=== PATIENT | female | born 1950 | race African-American/Black ===

== ENCOUNTER 2019-04-27 13:14 | Inpatient (IN) | payer OTHER ==
--- OUTSIDE RECORDS SUMMARY | 2019-04-27 13:17 | XMS REPORT ---
:1950 [facility] [address] [place] [address] Care Team Providers Name Role Phone Unavailable Unavailable Unavailable Problems This patient has no known problems. Allergies, Adverse Reactions, Alerts This patient has no known allergies or adverse reactions. Medications This patient has no known medications.
[2019-04-27 14:33] LABS: Absolute Lymphocytes (CBC) 0.4 K/uL (0.7-4.9); Basophils % 0.2 % (0-1.3); Hematocrit 34.5 % (36.0-45.0); Lymphocytes % 2.8 % (15.3-44.8); MPV 9.4 fL (7.6-11.3); RBC Red Blood Cell Count 3.69 M/uL (3.86-4.86)
[2019-04-27] MEDS ORDERED: NA CHLORIDE 0.9% 500 ML ONE (14:38)
--- NOTE | 2019-04-27 14:39 | RAD REPORT ---
EXAM DESCRIPTION: CT - Head Brain Wo Cont - 04/27/2019 2:22 pm CLINICAL HISTORY: Unresponsive COMPARISON: None TECHNIQUE: Computed axial tomography of the head was obtained. IV contrast was not requested. All CT scans are performed using dose optimization technique as appropriate and may include automated exposure control or mA/KV adjustment according to patient size. FINDINGS: Marked scalp swelling is present. The calvarium is thickened. This does limit evaluation o f the intracranial structures somewhat. A gross intracranial bleed is not seen. Low-density areas measuring a couple centimeters are present within the right frontal lobe and right occipital lobe. Additional small low-density areas within the periventricular and deep white matter appear chronic The ventricles are normal caliber Partial opacification right mastoids. Right middle ear is opacified. This may indicate inflammation s hould be correlated clinically IMPRESSION: Low density areas within the right frontal and right occipital lobes having the appearan ce of infarctions. Age is indeterminate. MRI is recommended for further evaluation
[2019-04-27 14:46] LABS: Urine Bacteria 20-50 /HPF (<20); Urine RBC <5 /HPF (NONE SEEN)
[2019-04-27 14:47] LABS: Urine Amorphous Sediment 3+ /HPF (NONE SEEN); Urine Coarse Granular Casts 0-5 /LPF (NONE SEEN); Urine Mucus 1+ /HPF (NONE SEEN)
[2019-04-27 15:04] LABS: Urine Blood 1+ (NEG); Urine Glucose NEGATIVE (NEG); Urine Protein 3+ (NEG); Urine Specific Gravity >1.030 (1.005-1.030)
[2019-04-27 15:05] LABS: Albumin 3.1 g/dL (3.4-5.0); Bilirubin Direct 0.2 mg/dL (0-0.2); Bilirubin Total 0.5 mg/dL (0.2-1.0); Potassium 4.4 mmol/L (3.5-5.1); Protein, Total 6.9 g/dL (6.4-8.2); Troponin (Emerg Dept Use Only) 0.06 ng/mL (0.0-0.045)
--- NOTE | 2019-04-27 15:13 | RAD REPORT ---
EXAM DESCRIPTION: RAD - Chest Single View - 04/27/2019 2:31 pm CLINICAL HISTORY: DYSPNEA, altered mental status COMPARISON: Chest Pa And Lat (2 Views) dated 05/31/2017None. TECHNIQUE: AP portable chest image was obtained 04/27/2019 2:31 pm . FINDINGS: Lungs are clear. Heart and vasculature are normal. No measurable pleural effusion and no p neumothorax. No acute bony abnormality seen. No acute aortic findings suspected. IMPRESSION: No acute cardiopulmonary process. No suspicious change from comparison.
[2019-04-27 15:24] LABS: White Blood Cell Scan OK
[2019-04-27 15:25] LABS: Blood Morphology Comment NOT SEEN (NOT SEEN); Platelet Estimate ADEQ
--- NOTE | 2019-04-27 16:06 | ER ---
Nurse's Notes [facility] Name: Yaa Deleon Age: 69 yrs Sex: Female : 1950 Arrival Date: 04/27/2019 Time: 13:21 Bed 18 Private MD: Diagnosis: Cerebral infarction;Acute kidney failure;Rhabdomyolysis;Altered mental status, unspecified Presentation: 04/27 13:22 Presenting complaint: EMS states: FOUND DOWN BY PD ON WELFARE CHECK, LAST SEEN BY bp FAMILY 3 DAYS AGO. Transition of care: patient was not received from another setting of care. Onset of symptoms is unknown. Risk Assessment: Do you want to hurt yourself or someone else? Patient reports no desire to harm self or others. Initial Sepsis Screen: Does the patient meet any 2 criteria? Altered Mental Status. HR > 90 bpm. Does the patient have a suspected source of infection? No. Patient's initial sepsis screen is negative. Care prior to arrival: Glucose check: 89. 13:22 Method Of Arrival: EMS: [facility] bp 13:22 Acuity: LISA 2 bp Triage Assessment: 13:26 General: Appears distressed, uncomfortable, obese, unkempt, Behavior is cooperative, bp appropriate for age, anxious. Pain: Denies pain. EENT: No deficits noted. Neuro: Level of Consciousness is obeys commands, confused, lethargic, Oriented to person, place, time, situation. Cardiovascular: Rhythm is sinus tachycardia. Respiratory: No deficits noted. GI: Abdomen is obese, Reports vomiting. : No signs and/or symptoms were reported regarding the genitourinary system. Derm: No deficits noted. Musculoskeletal: No deficits noted. Historical: - Allergies: 13:25 No Known Allergies; bp - Home Meds: 13:25 Eliquis oral oral [Active]; metoprolol tartrate 50 mg Oral tab 1 tab once daily bp [Active]; atorvastatin 20 mg Oral tab 1 tab once daily [Active]; 19:48 Omeprazole Oral [Active]; wh - PMHx: 13:25 Myocardial infarction; Cancer; DVT; Hypertension; bp - Immunization history:: Adult Immunizations unknown. - Social history:: Smoking status: Patient denies any tobacco usage or history of. - Ebola Screening: : No symptoms or risks identified at this time. - History obtained from: EMS. Screenin:27 Abuse screen: Denies threats or abuse. Denies injuries from another. Nutritional bp screening: No deficits noted. Tuberculosis screening: No symptoms or risk factors identified. Fall Risk None identified. Assessment: 13:27 General: SEE TRIAGE NOTE. bp 14:23 Reassessment: PT REQUIRING EXTENSIVE CLEANING BY STAFF. FECES DRIED TO POSTERIOR bp SURFACES WELL EXTENSIVELY PRESENT ON EXTERNAL AND INTERNAL PERINEAL SURFACES AND OBSCURING THE URETHRAL MEATUS. NO OBVIOUS DECUBITUS NOTED. 15:41 Reassessment: PT RESTING QUIETLY. FAMILY AT B/S AND CONFIRM EMS REPORT OF PT DOWN ON bp GROUND AT HOME. PT REMAINS AOx2, FURTHER RESULTS PENDING. 17:00 Reassessment: ADMIT IN PROCESS. PER RADIOLOGY, CT HIGHLY SUSPICIOUS FOR CEREBRAL bp INFARCT. NO CHANGE IN PT NEURO STATUS AT THIS TIME. 18:00 Reassessment: ADMIT IN PROCESS, FAMILY AT B/S. PT SEEN BY DR HUNTER. VS STABLE ON bp MONITOR. 19:04 Reassessment: Patient appears in no apparent distress at this time. Patient and/or wh family updated on plan of care and expected duration. Pain level reassessed. 20:00 Reassessment: Patient appears in no apparent distress at this time. Patient and/or wh family updated on plan of care and expected duration. Pain level reassessed. PT was brought to MRI for Imaging. 21:30 Reassessment: Patient appears in no apparent distress at this time. Patient and/or wh family updated on plan of care and expected duration. Pain level reassessed. Pt brought back from MRI imaging. Vital Signs: 13:25 BP 164 / 67; Pulse 115; Resp 14; Temp 97.4; Pulse Ox 99% ; Weight 136.08 kg; bp 14:24 BP 172 / 75; Pulse 121; Resp 19; Pulse Ox 99% ; bp 15:40 BP 164 / 67; Pulse 93; Resp 14; Pulse Ox 97% ; bp 17:00 BP 158 / 63; Pulse 111; Resp 15; Pulse Ox 98% ; bp 18:00 BP 113 / 61; Pulse 130; Resp 18; Pulse Ox 100% ; bp 19:05 BP 154 / 64; Pulse 117; Resp 18; Pulse Ox 98% ; wh 20:00 BP 144 / 70; Pulse 120; Resp 18; Pulse Ox 98% on R/A; wh 21:45 BP 146 / 64; Pulse 121; Resp 18; Pulse Ox 100% ; ED Course: 13:21 Patient arrived in ED. rn 13:21 Bogdan Candelaria MD is Attending Physician. rn 13:22 Al Rico, CEM is Primary Nurse. bp 13:23 Triage completed. bp 13:25 Arm band placed on left wrist. bp 13:27 Patient has correct armband on for positive identification. Bed in low position. Call bp light in reach. Side rails up X2. 14:00 Jerome cath inserted, using sterile technique, 16 Fr., by nv, balloon inflated, to bp gravity drainage, urine specimen collected. Inserted saline lock: 22 gauge in right upper arm, using aseptic technique. Blood collected. 14:22 CT Head Brain wo Cont In Process Unspecified. EDMS 14:29 XRAY Chest (1 view) In Process Unspecified. EDMS 14:44 Warm blanket given. ekg monitor on. Pulse ox on. NIBP on. [facility] 14:44 Urine collected: Jerome catheter specimen, tea colored. [facility] 16:05 Donna Silva MD is Hospitalizing Provider. rn 21:59 No provider procedures requiring assistance completed. Patient admitted, IV remains in place. Administered Medications: 14:42 Drug: NS 0.9% 500 ml Route: IV; Rate: bolus; Site: right upper arm; ss 16:50 Follow up: IV Status: Completed infusion; IV Intake: 500ml bp 15:50 Drug: NS 0.9% 1000 ml Route: IV; Rate: 75 ml/hr; Site: right upper arm; bp 21:59 Follow up: Response: No adverse reaction; IV Status: Infusion continued upon admission Intake: 16:50 IV: 500ml; Total: 500ml. bp Outcome: 16:06 Decision to Hospitalize by Provider. rn 21:59 Admitted to ER Hold. Please see [facility] for further documentation. 21:59 Condition: stable 21:59 Instructed on the need for admit. 04/28 09:43 Patient left the ED. tw2 Signatures: Dispatcher [employer] EDMS Bogdan Candelaria MD MD rn Smirch, Shelby, RN RN ss Wise, Tara, RN RN 2 Tiarra Mayfield [facility] Arjun Sierra Al Rico, RN RN bp Corrections: (The following items were deleted from the chart) 04/27 14:25 14:23 Reassessment: PT REQUIRING EXTENSIVE CLEANING BY STAFF. FECES DRIED TO POSTERIOR bp SURFACES WELL EXTENSIVELY PRESENT ON EXTERNAL AND INTERNAL PERINEAL SURFACES. NO OBVIOUS DECUBITUS NOTED bp
--- NOTE | 2019-04-27 16:07 | EDPHYS ---
Physician Documentation [facility] Name: Yaa Deleon Age: 69 yrs Sex: Female : 1950 Arrival Date: 04/27/2019 Time: 13:21 Bed 18 Private MD: ED Physician Bogdan Candelaria HPI: 04/27 14:07 This 69 yrs old Black Female presents to ER via EMS with complaints of found on floor rn of bedroom, minimally responsive, covered in feces and urine. 14:09 The patient presents with decreased responsiveness. Onset: The symptoms/episode rn began/occurred at an unknown time. Possible causes: unknown. Current symptoms: In the emergency department the patient's symptoms are unchanged from the initial presentation. It is unknown whether or not the patient has had similar symptoms in the past. Last seen normal 3 days ago. . Historical: - Allergies: 13:25 No Known Allergies; bp - Home Meds: 13:25 Eliquis oral oral [Active]; metoprolol tartrate 50 mg Oral tab 1 tab once daily bp [Active]; atorvastatin 20 mg Oral tab 1 tab once daily [Active]; 19:48 Omeprazole Oral [Active]; wh - PMHx: 13:25 Myocardial infarction; Cancer; DVT; Hypertension; bp - Immunization history:: Adult Immunizations unknown. - Social history:: Smoking status: Patient denies any tobacco usage or history of. - Ebola Screening: : No symptoms or risks identified at this time. - History obtained from: EMS. ROS: 14:09 Constitutional: Negative for fever, chills, and weight loss, Eyes: Negative for injury, rn pain, redness, and discharge, Neck: Negative for injury, pain, and swelling, Cardiovascular: Negative for chest pain, palpitations, and edema, Respiratory: Negative for shortness of breath, cough, wheezing, and pleuritic chest pain, Abdomen/GI: Negative for abdominal pain, nausea, vomiting, diarrhea, and constipation, MS/Extremity: Negative for injury and deformity, Skin: Negative for injury, rash, and discoloration, Neuro: Negative for headache, numbness, tingling, and seizure. Exam: 14:09 Constitutional: Obese female, awake but somnolent, awakens to voice Head/Face: rn Normocephalic, atraumatic. Eyes: Bilateral ocular drainage, no sign of hyphema or injury, no hypoypyon ENT: dry MM with cracked lips Cardiovascular: Tachycardic, regular Respiratory: No increased work of breathing, no retractions or nasal flaring. Abdomen/GI: soft, non-tender MS/ Extremity: Pulses equal, no cyanosis. Neuro: Awake but somnolent, GCS 15, oriented to person, place, and situation. Cranial nerves II-XII grossly intact. Motor strength 4/5 in all extremities. Sensory grossly intact. Vital Signs: 13:25 BP 164 / 67; Pulse 115; Resp 14; Temp 97.4; Pulse Ox 99% ; Weight 136.08 kg; bp 14:24 BP 172 / 75; Pulse 121; Resp 19; Pulse Ox 99% ; bp 15:40 BP 164 / 67; Pulse 93; Resp 14; Pulse Ox 97% ; bp 17:00 BP 158 / 63; Pulse 111; Resp 15; Pulse Ox 98% ; bp 18:00 BP 113 / 61; Pulse 130; Resp 18; Pulse Ox 100% ; bp 19:05 BP 154 / 64; Pulse 117; Resp 18; Pulse Ox 98% ; wh 20:00 BP 144 / 70; Pulse 120; Resp 18; Pulse Ox 98% on R/A; wh 21:45 BP 146 / 64; Pulse 121; Resp 18; Pulse Ox 100% ; wh MDM: 13:21 Patient medically screened. rn 16:04 Differential Diagnosis: CVA, intracranial bleed, pneumonia, seizure, sepsis, TIA, UTI, rn volume depletion. Data reviewed: vital signs, nurses notes, lab test result(s), EKG, radiologic studies, CT scan, plain films, and as a result, I will admit patient. Counseling: I had a detailed discussion with the patient and/or guardian regarding: the historical points, exam findings, and any diagnostic results supporting the discharge/admit diagnosis, lab results, radiology results, the need for further work-up and treatment in the hospital. Admission orders: after a detailed discussion of the patient's condition and case, the admit orders are written by me. ED course: Admitted to Dr. Silva for neuro consult, IV hydration, renal failure. . 04/27 13: Order name: CBC with Diff; Complete Time: 15:26 rn 04/27 12:23 Order name: Basic Metabolic Panel; Complete Time: 15:16 rn 04/27 13:23 Order name: Urine Culture rn 04/27 13:23 Order name: Urine Microscopic Only; Complete Time: 15:16 rn 04/27 13:23 Order name: CK; Complete Time: 15:16 rn 04/27 13:23 Order name: Troponin (emerg Dept Use Only); Complete Time: 15:16 rn 04/27 13:23 Order name: Creatinine for Radiology; Complete Time: 15:16 rn 04/27 13:23 Order name: Hepatic Function; Complete Time: 15:16 rn 04/27 13:23 Order name: Lipase; Complete Time: 15:16 rn 04/27 13:23 Order name: Blood Culture Adult (2) rn 04/27 13:23 Order name: Procalcitonin; Complete Time: 15:26 rn 04/27 13:23 Order name: Lactate; Complete Time: 15:16 rn 04/27 14:16 Order name: Urine Dipstick--Ancillary (enter results); Complete Time: 15:16 04/27 15:25 Order name: CBC Smear Scan; Complete Time: 15:26 EDSD 04/27 13:23 Order name: IV Start; Complete Time: 14:23 rn 04/27 13:23 Order name: Urine Dipstick-Ancillary (obtain specimen); Complete Time: 14:23 rn 04/27 13:23 Order name: XRAY Chest (1 view); Complete Time: 15:16 rn 04/27 13:23 Order name: CT Head Brain wo Cont; Complete Time: 15:16 rn 04/27 13:23 Order name: Labs collected and sent; Complete Time: 14:23 rn 04/27 16:25 Order name: MRA Head Wo Cont EDMS 04/27 16:25 Order name: MRA Neck Without Cont EDMS 04/27 16:25 Order name: Brain Wo Cont EDMS 04/28 04:03 Order name: CBC with Automated Diff EDMS 04/28 04:27 Order name: Manual Differential EDMS 04/28 04:36 Order name: Comprehensive Metabolic Panel EDMS 04/28 04:36 Order name: Creatine Phosphokinase EDMS 04/28 04:36 Order name: Lipid Profile EDMS 04/28 09:23 Order name: US EDMS Administered Medications: 14:42 Drug: NS 0.9% 500 ml Route: IV; Rate: bolus; Site: right upper arm; ss 16:50 Follow up: IV Status: Completed infusion; IV Intake: 500ml bp 15:50 Drug: NS 0.9% 1000 ml Route: IV; Rate: 75 ml/hr; Site: right upper arm; bp 21:59 Follow up: Response: No adverse reaction; IV Status: Infusion continued upon admission Disposition: 04/27/19 16:06 Hospitalization ordered by Donna Silva for Inpatient Admission. Preliminary diagnosis are Cerebral infarction, Acute kidney failure, Rhabdomyolysis, Altered mental status, unspecified. - Bed requested for Telemetry/MedSurg (Inpatient). - Status is Inpatient Admission. tw2 - Condition is Fair. - Problem is new. - Symptoms have improved. UTI on Admission? No Signatures: Dispatcher [employer] EDMS Bogdan Candelaria MD MD rn Smirch, Shelby, RN RN Stacie Martins RN RN Bonnie Nails RN RN tw2 Arjun Sierra Al Rico RN RN Miley Jewell Corrections: (The following items were deleted from the chart) 21:12 16:06 Hospitalization Ordered by Donna Silva MD for Inpatient Admission. Preliminary cg diagnosis is Cerebral infarction; Acute kidney failure; Rhabdomyolysis; Altered mental status, unspecified. Bed requested for Intensive Care Unit. Status is Inpatient Admission. Condition is Fair. Problem is new. Symptoms have improved. UTI on Admission? No. rn 04/28 08:33 04/27 21:12 04/27/2019 16:06 Hospitalization Ordered by Donna Silva MD for Inpatient eb Admission. Preliminary diagnosis is Cerebral infarction; Acute kidney failure; Rhabdomyolysis; Altered mental status, unspecified. Bed requested for [facility] ER HOLD. Status is Inpatient Admission. Condition is Fair. Problem is new. Symptoms have improved. UTI on Admission? No. cg 04/28 09:11 08:33 04/27/2019 16:06 Hospitalization Ordered by Donna Silva MD for Inpatient eb Admission. Preliminary diagnosis is Cerebral infarction; Acute kidney failure; Rhabdomyolysis; Altered mental status, unspecified. Bed requested for Telemetry/MedSurg (Inpatient). Status is Inpatient Admission. Condition is Fair. Problem is new. Symptoms have improved. UTI on Admission? No. eb 09:43 09:11 04/27/2019 16:06 Hospitalization Ordered by Donna Silva MD for Inpatient tw2 Admission. Preliminary diagnosis is Cerebral infarction; Acute kidney failure; Rhabdomyolysis; Altered mental status, unspecified. Bed requested for Telemetry/MedSurg (Inpatient). Status is Inpatient Admission. Condition is Fair. Problem is new. Symptoms have improved. UTI on Admission? No. eb
[2019-04-27] MEDS ORDERED: NA CHLORIDE 0.9% 1,000 ML ONE (16:13)
--- NOTE | 2019-04-27 21:05 | HP ---
Date of Admission: 04/27/2019 Chief Complaint: Altered mental status, found down. Code status: Full code. Patient does not have MPOA Consultants: 1. Dr. Natarajan of Neurology. 2. Dr. Arroyo with Nephrology. History Of Present Illness: The patient is a 69-year-old female with past medical history of chronic lymphedema, coronary artery disease, hypertension, who was in her usual state of health until day of admission when the patient had been nonresponsive to her family, not answering their call, so police went in for welfare check, was found down. Patient apparently was last well on Wednesday. She was found in her urine and in feces found down, unable to get up. The patient's symptoms were constant, moderate, progressively worsening. She does not recall the episode. She was lying in bed. Her workup revealed a creatinine of 2.73. CK level was 3000. Her CT scan shows subacute CVA, right frontal and occipital lobe. Troponin was mildly elevated at 0.06. Patient was tachycardic, still confused. Otherwise, the patient denied any nausea, did have some vomitus. She was also covered in vomitus. Patient was then referred for admission, not given any tPA as her last known well was on Wednesday. Past Medical History: Hypertension, coronary artery disease, lymphedema. Past Surgical History: Hysterectomy, tonsillectomy. Allergies: NO KNOWN DRUG ALLERGIES. Medications: List reviewed. Social History: Patient denies any tobacco use or alcohol use. No illicit drug use. Family History: No premature coronary artery disease in the family. Review of Systems: Negative except as per HPI. A 10-point system reviewed. Physical Examination: Vital Signs: Blood pressure 164/67, pulse 115, respirations 14, temperature 97.4, O2 99%. General: Awake, alert, and oriented x2 to self and place only. Ill-appearing female, morbidly obese. HEENT: Normocephalic, atraumatic. PERRLA. EOMI. Dry mucous membranes. Poor dentition. Conjunctivae are anicteric. Patient does have some drainage from the eye that is white in color. CV: S1, S2. Sinus tachycardia. Peripheral pulses weak. Respiratory: Diminished breath sounds at the bases. No wheezing or stridor. Gastrointestinal: Abdomen is soft, nontender, nondistended. Positive bowel sounds. No guarding or rigidity. Extremities: No clubbing or cyanosis. Patient has chronic lymphedema, bilateral lower extremities. No calf tenderness. Neuro: Cranial nerves 2 through 12 intact grossly. Patient has weakness in her left upper and lower extremity 3/5. Speech is normal. Skin: No rashes. Normal skin turgor. Laboratory Data: Sodium 143, potassium 4.4, chloride 107, CO2 22, BUN 74, creatinine 2.73, glucose 82, lactate 1.6, calcium 8.3, AST 91, ALT 52. CK level is 2532, troponin 0.06. Procalcitonin 0.49. Lactate is 1.6. WBC 13.1, H and H 11.2 and 34.5, platelets 188, neutrophils 87%. UA negative nitrite, negative leukocyte esterase, 10-20 squamous epithelial cells, 20-50 bacteria, less than 5 wbc's, protein present. Imaging Studies: Chest x-ray personally reviewed shows no acute cardiopulmonary process. Head CT scan shows low-density areas within the right frontal and right occipital lobes, have the appearance of infarctions, age is indeterminate. Assessment: A 69-year-old female with, 1. Acute to subacute cerebrovascular accident in the right frontal occipital lobes. We will start on stroke guidelines. Last known well was Wednesday, not a candidate for tPA. Consult Neurology. Start on aspirin, Plavix, and statin. Speech and OT eval. Keep n.p.o. for now. 2. Acute metabolic encephalopathy, likely secondary to stroke and uremia. Head CT scan showed the strokes as mentioned above. 3. Acute rhabdomyolysis. CK level is 3000. Patient has been down for several days. We will start on IV fluids. Consult Nephrology. 4. Acute kidney injury secondary to above and dehydration. We will continue with IV fluids. Monitor kidney function. Avoid NSAIDs. 5. Elevated troponin level likely secondary to demand mismatch. We will consult Cardiology, obtain echocardiogram. 6. Essential hypertension. We will allow permissive hypertension due to acute cerebrovascular accident. 7. Coronary artery disease [place] artery and [place] heart without angina. Continue aspirin. 8. Chronic lymphedema. 9. Morbid obesity. Plan: Admit patient to ICU, place as inpatient. Length of stay greater than 2 midnights. /LALA Voice ID: [id number] KE
[2019-04-27] MEDS ORDERED: ATORVASTATIN 20 MG TAB PO SCH (22:01)
[2019-04-27] MEDS: NA CHLORIDE 0.9% 1,000 ML IV SCH (22:01)
[2019-04-27] MEDS ORDERED: ONDANSETRON 4 MG/2 ML VIAL IV PRN (22:01)
[2019-04-28] MEDS ORDERED: ENOXAPARIN 30 MG/0.3 ML SQ SCH (01:00)
[2019-04-28] MEDS ORDERED: ENOXAPARIN 30 MG/0.3 ML SQ ONE (01:33)
[2019-04-28 03:57] LABS: Absolute Lymphocytes (CBC) 0.5 K/uL (0.7-4.9); Basophils % 0.1 % (0-1.3); Hematocrit 31.2 % (36.0-45.0); Lymphocytes % 4.7 % (15.3-44.8); MPV 9.5 fL (7.6-11.3); RBC Red Blood Cell Count 3.31 M/uL (3.86-4.86)
[2019-04-28 04:26] LABS: Platelet Estimate ADEQ
[2019-04-28 04:27] LABS: Blood Morphology Comment NOT SEEN (NOT SEEN)
[2019-04-28 04:33] LABS: Albumin 2.9 g/dL (3.4-5.0); Bilirubin Total 0.6 mg/dL (0.2-1.0); Protein, Total 6.5 g/dL (6.4-8.2)
--- NOTE | 2019-04-28 08:33 | RAD REPORT ---
EXAM DESCRIPTION: MRI - Brain Wo Cont - 04/27/2019 9:52 pm CLINICAL HISTORY: CVA Headache, drowsiness, CVA symptomology COMPARISON: MRA Head Wo Cont dated 04/27/2019 TECHNIQUE: Multi-sequence, multiplanar MR imaging of the brain was performed without contrast. FINDINGS: No intracranial hemorrhage, hydrocephalus or extra-axial fluid collections. There is signi ficant T2 and FLAIR hyperintensity in the white matter in the periventricular and deep white matter r egion.This may represent chronic microvascular ischemia, although findings are nonspecific and underl [place]ent[place] white matter disorder cannot be ruled out. DWI is negative for acute CVA. Midline structures are normally formed. Mastoid air cells and paranasal sinuses are clear. IMPRESSION: Negative for acute CVA or other acute intracranial process.
--- NOTE | 2019-04-28 08:33 | RAD REPORT ---
EXAM DESCRIPTION: MRI - MRA Head Wo Cont - 04/27/2019 9:52 pm CLINICAL HISTORY: CVA CVA COMPARISON: Head Brain Wo Cont dated 04/27/2019 FINDINGS: 3D noncontrast [id number] MR angiography of the [place] was performed. No aneurysm, flow-limiting stenosis or vascular malformation is seen. Forward flow seen in codominant vertebral arteries. The visualized dural venous sinuses appear patent. IMPRESSION: No significant flow abnormality of the [place] is identified.
[2019-04-28] MEDS ORDERED: CLOPIDOGREL 75 MG TABLET PO SCH (09:00)
--- NOTE | 2019-04-28 09:23 | RAD REPORT ---
EXAM DESCRIPTION: US - CP - 04/28/2019 7:06 am CLINICAL HISTORY: CVA Headache, syncope, CVA symptomology COMPARISON: No comparisons TECHNIQUE: Real-time sonographic evaluation of both carotid systems was performed. Doppler interroga tion was performed with waveform tracing bilaterally. FINDINGS: Normal high resistance waveforms are noted in both external carotid arteries. The common c arotid arteries and internal carotid arteries show normal low resistance waveforms. No significant plaque formation is seen. Peak systolic and end diastolic velocity values and the ICA/ CCA ratios are in the non-hemodynamically significant range. Antegrade flow seen in both vertebral arteries. IMPRESSION: No significant atherosclerotic changes noted. No evidence of a hemodynamically significant stenosis.
[2019-04-28] MEDS: NA CHLORIDE 0.9% 1,000 ML IV SCH ×2 (10:32→17:43)
--- NOTE | 2019-04-28 12:49 | P.CNS ---
Date of Consult: 04/28/19 Reason for Consult: SAMI Requesting Physician: Donna Silva Chief Complaint: LOC History of Present Illness: A 69-year-old AA woman With PMHx of colon Ca was on chemo and radiation therapy , last dose in 10/2018 , with colostomy that reversed in 03/2019 , chronic lymphedema, CAD, Pt was found unresponsive and brought to the hospital pt is a poor historian, she cant recall any abnormal events before the incident labs in ER creatinine of 2.73. CK level was 3000. pt denied NSAID intake, or recent contrast exposure, seen last month by director quality assurance and told to f/u in 6 months , she was following director quality assurance for Acidosis that improved after colostomy reversal Allergies No Known Allergies Allergy (Verified 04/27/19 23:58) Home Medications: Apixaban [Eliquis] 5 mg PO BID 04/28/19 Metoprolol Succinate 50 mg PO DAILY 04/28/19 Omeprazole [Prilosec] 40 mg PO DAILY 04/28/19 - Past Medical/Surgical History Diabetic: No -: Lymphedema BLE -: Hx [place] -: HTN -: Hyperlipidemia -: DVT -: Cancer -: hysterectomy -: tonsillectomy - Family History Father Medical History: Hypertension, Stroke Notes: hemorrhagic stroke - Social History Alcohol use: No CD- Drugs: No Caffeine use: No Place of Residence: Home Physical Examination Temp Pulse Resp BP Pulse Ox 99.4 F 119 H 18 133/60 96 04/28/19 09:45 04/28/19 09:45 04/28/19 09:45 04/28/19 09:45 04/28/19 09:45 General: Alert, In no apparent distress, Obese HEENT: Atraumatic, Normocephalic Neck: Supple, Without JVD or thyroid abnormality Respiratory: Clear to auscultation bilaterally, Normal air movement Cardiovascular: No edema, Regular rate/rhythm, Normal S1 S2, No gallops, No rubs , No murmurs Gastrointestinal: Normal bowel sounds, Soft and benign Musculoskeletal: No swelling Neurological: Normal speech, Other (Lt sided wekanes) Laboratory Data (last 24 hrs) 04/27/19 14:15: Creatinine 2.73 H 04/27/19 14:15: Sodium 143, Potassium 4.4, BUN 74 H, Creatinine 2.73 H, Glucose 82, Total Bilirubin 0.5, AST 91 H, ALT 52, Alkaline Phosphatase 93, Lipase 34 L 04/27/19 14:15: WBC 13.1 H, Hgb 11.2 L, Hct 34.5 L, Plt Count 188 Conclusions/Impression: SAMI as per daughter , her mother had normal RFT from recent labs . Cr 0.8 in 2018 possibly due to Rhabdomyolysis cont IVF will order US, UA and UPC renal dose meds rhabdo cont IVF as above will hold lipitor for now PT/OT TIA? cont supportive care HX of DVT on Eliquis
--- NOTE | 2019-04-28 13:03 | RAD REPORT ---
EXAM DESCRIPTION: CT - C Spine Wo Con - 04/28/2019 12:57 pm CLINICAL HISTORY: fall at home Fall, neck injury and pain COMPARISON: No comparisons FINDINGS: Cervical vertebral body heights are maintained. Multilevel disc thinning is present with s mall posterior osteophytes lower cervical levels. No evidence of acute cervical spine fracture or subluxation. Prevertebral soft tissues are normal in thickness. IMPRESSION: Negative for acute cervical spine abnormality. Mild lower cervical spondylosis. All CT scans are performed using dose optimization technique as appropriate and may include automated exposure control or mA/KV adjustment according to patient size.
[2019-04-28] MEDS: CEFTRIAXONE/SWI 1gm 1 GM/10 ML SYR IV SCH (13:14)
--- NOTE | 2019-04-28 14:18 | ECHO ---
HEIGHT: 5 ft 6 in WEIGHT: 300 lb 0 oz DATE OF STUDY: 04/28/[address]: Donna Silva MD 2-DIMENSIONAL: YES M.MODE: YES DOPPLER: YES COLOR FLOW: YES TDS: NO PORTABLE: NO DEFINITY: NO BUBBLE STUDY: NO DIAGNOSIS: STROKE CARDIAC HISTORY: CATHERIZATION: NO SURGERY: NO PROSTHETIC VALVE: NO PACEMAKER: NO MEASUREMENTS (cm) DIASTOLIC (NORMALS) SYSTOLIC (NORMALS) IVSd 1.3 (0.6-1.2) LA Diam 3.7 (1.9-4.0) LVEF 73% LVIDd 3.1 (3.5-5.7) LVIDs 1.8 (2.0-3.5) %FS 41% LVPWd 1.4 (0.6-1.2) Ao Diam 2.9 (2.0-3.7) 2 DIMENSIONAL ASSESSMENT: RIGHT ATRIUM: NORMAL LEFT ATRIUM: DILATED RIGHT VENTRICLE: NORMAL LEFT VENTRICLE: LEFT VENTRICULAR HYPERTROPHY TRICUSPID VALVE: NORMAL MITRAL VALVE: NORMAL PULMONIC VALVE: NORMAL AORTIC VALVE: NORMAL PERICARDIAL EFFUSION: NONE AORTIC ROOT: NORMAL LEFT VENTRICULAR WALL MOTION: HYPERDYNAMIC DOPPLER/COLOR FLOW: MILD TRICUSPID REGURGITATION. MILD PULMONARY HYPERTENSION. ESTIMATED RIGHT VENTRICULAR SYSTOLIC PRESSURE 48 mmHg. COMMENTS: HYPERDYNAMIC LEFT VENTRICULAR EJECTION FRACTION. LEFT VENTRICULAR HYPERTROPHY. DILATED LEFT ATRIUM. MILD TRICUSPID REGURGITATION. MILD PULMONARY HYPERTENSION. SALINE CONTRAST STUDY NEGATIVE. NO EVIDENCE OF RIGHT TO LEFT SHUNT. TECHNOLOGIST: Markell CONCEPCION
--- NOTE | 2019-04-28 14:50 | RAD REPORT ---
EXAM DESCRIPTION: US - Renal Ultrasound-Complete - 04/28/2019 2:35 pm CLINICAL HISTORY: SAMI COMPARISON: No comparisons FINDINGS: Both kidneys are normal in size, shape and echotexture. The right kidney measures 11.3 x 4.5 x 4.4 cm. No hydronephrosis, focal mass or perinephric fluid. The left kidney measures 10.6 x 5.0 x 4.9 cm. No hydronephrosis, focal mass or perinephric fluid. The urinary bladder is not well imaged due to patient cooperation issues. IMPRESSION: Unremarkable renal sonogram.
[2019-04-28 15:20] LABS: Urine Appearance CLEAR; Urine Blood 2+ (NEG); Urine Color YELLOW; Urine Glucose NEGATIVE (NEG); Urine Protein 1+ (NEG); Urine Urobilinogen 0.2 mg/dL (0.2-1.0)
[2019-04-28 15:22] LABS: Urine Microscopic Reflex ORDER UMIC
[2019-04-28 15:27] LABS: Urine Bilirubin 1+ (NEG)
[2019-04-28 15:29] LABS: Urine RBC <5 /HPF (NONE SEEN)
[2019-04-28 15:30] LABS: Urine Amorphous Sediment 1+ /HPF (NONE SEEN); Urine Bacteria <20 /HPF (<20)
[2019-04-28 15:33] LABS: Urine Protein/Creatinine Ratio 0.47 ratio (<0.15)
--- NOTE | 2019-04-28 19:30 | PN ---
Date of Progress Note: 04/28/2019 Subjective: Patient is seen and examined. Chart reviewed and case discussed with RN and Dr. Deluna. Family at the bedside. Treatment plan explained. All questions answered. Patient is still somewhat confused. Case discussed with Dr. Natarajan. Her MRI did not show any acute stroke. Patient is still somewhat confused and has weakness on the left side. Medications: List reviewed. Physical Examination: Vital Signs: Temperature 97.8, heart rate 115, blood pressure 127/57, respirations 17, O2 96% on room air. General: Awake, alert, oriented x3, in some mild distress. Elderly female, morbidly obese, talking inappropriately at times. CV: S1, S2. Regular rate and rhythm. Peripheral pulses weak. Respiratory: Moving air well bilaterally. Abdomen: Soft, nontender, nondistended. Positive bowel sounds. Extremities: No clubbing, cyanosis. Patient has peripheral edema in bilateral lower extremities. Neuro: Patient has weakness of the left upper and lower extremity, 3/5. Speech is normal. Laboratory Data: WBC 11.1, H and H 10.1 and 31.2, platelets 160, neutrophils 85 %, 2% bands. Sodium 145, potassium 4, chloride 111, CO2 of 23, BUN 77, creatinine 2.49, glucose 91, calcium 8, AST 83, ALT 47. CK level is 2376. Albumin 2.9, cholesterol 237, triglycerides 139, LDL 144, HDL 65. Urine culture shows no growth to date. Blood cultures, no growth to date. Echocardiogram shows EF of 73%, hyperdynamic left ventricular EF, left ventricular hypertrophy, dilated left atrium, mild pulmonary hypertension. Renal ultrasound shows unremarkable renal sonogram. Cervical spine CT shows negative for acute cervical spine abnormality, mild lower cervical spondylosis. Carotid artery ultrasound shows no significant atherosclerotic changes noted. No evidence of a hemodynamically significant stenosis. CT head of the brain shows low-density area within the right frontal and right occipital lobes, having the appearance of infarctions, age indeterminate. MRI of the brain, however, did not show any acute infarction. Patient has chronic microvascular ischemia, although nonspecific and underlying white matter disorder cannot be ruled out. MRA of the brain, no significant flow abnormality of the [place]. Assessment: A 69-year-old female with: 1. CVA. Patient's MRI is negative; however, seems to be confused and has some weakness on the left side. Appreciate Dr. Natarajan's input. Patient is not a candidate for tPA as she was found down for after several days. Continue stroke guidelines. We will need to hold statin due to her rhabdomyolysis. Patient is on anticoagulation with Eliquis. We will continue aspirin. 2. Acute metabolic encephalopathy, improving, likely secondary to above. 3. Acute rhabdomyolysis. CK level is trending down. We will continue with IV fluids. Appreciate Nephrology input. 4. Acute kidney injury secondary to rhabdo and dehydration, slightly improved. We will avoid NSAIDs. Continue monitoring. Continue IV fluids. 5. Elevated troponin level, likely due to demand mismatch. Cardiology consulted. Echocardiogram shows normal ejection fraction; however, possible atrial septal defect is seen. No bubble study was done. 6. Carotid artery disease, [place] artery, and [place] heart without angina. We will continue aspirin. 7. Chronic lymphedema. 8. Morbid obesity. BMI 48. 9. Deep venous thrombosis prophylaxis. Patient is already on anticoagulation. Plan, Cardiology consultation. 10. Hypertensive heart disease. 11. Mild pulmonary hypertension. 12. Possible atrial septal defect. ADDENDUM: Spoke w Dr. Boss. Bubble study was done and is negative. No ASD. SA/MODL Voice ID: [id number] Report ID: [id number] KE
[2019-04-28] MEDS: APIXABAN 5 MG TABLET PO SCH (20:19)
--- NOTE | 2019-04-28 20:20 | CON ---
History Of Present Illness: Ms. Deleon is 69. She came to the hospital with a marked change in he r mental status, weakness, and she has evidence of a stroke involving the right frontal and right occ ipital lobe. She has a left hemiparesis. She is not aphasic. An echocardiogram was done and there was a thin area of the left atrial septum close to the cardiac skeleton that looked like it might hav e been an atrial septal defect and I was asked to evaluate this further. Since that initial echo rep ort has been done, we have gone back and done a saline contrast and there is no evidence of any right -to-left shunt, so the echo report will be amended, there will be an addendum that says there is no e vidence of atrial septal defect using saline contrast. The patient has a long history of obesity, hy pertension, diabetes. She has been on apixaban 2.5 b.i.d., but I think that is actually an underdose , based on her weight, age, and renal function her apixaban dose should be 5 mg b.i.d. She is not a dialysis patient, but she has severe renal insufficiency. Her other outpatient medications have been omeprazole and metoprolol. Her blood sugars are actually fine here in the hospital and it was a mis take for me to say she had diabetes. She had a cardiac catheterization in 2014. There was mild CAD. She had evidence of a myocardial infarction that prompted the cardiac cath, but no evidence of any underlying coronary stenosis and she was not treated with a stent. Physical Examination: General: She appears to be alert, but she is confused. She is angry at people because she is confus ed and wants to take all of her monitors off and get her catheter out. She is 5 feet 6 inches, 300 p ounds. HEENT: Unremarkable. No facial droop. Lungs: Clear. Heart: Does not reveal any splitting of S2 other than what would be physiologic. Abdomen: Soft. Extremities: 3+ edema. Distal pulses not palpable, probably from the edema. Impression: The patient's stroke of the right frontal and parietal lobes is not due to an intracardi ac shunt such as a patent foramen or an atrial septal defect. She has a carotid Doppler that does no t reveal significant stenosis. An MRA does not show anything significant, so it looks like most like ly like a stroke caused by small blood vessel occlusion from hypertension. I think if we are going t o treat her with apixaban, the dose should be increased to 5 mg b.i.d. I do not see the indication f or the apixaban is atrial fibrillation, although that would be the most likely thing. We will simply have to look into it some more. PRAKASH/LALA Voice ID: [id number] Report ID: [id number]
[2019-04-29] MEDS: NA CHLORIDE 0.9% 1,000 ML IV SCH ×3 (00:39→12:07)
[2019-04-29 06:47] LABS: Absolute Lymphocytes (CBC) 0.7 K/uL (0.7-4.9); Basophils % 0.2 % (0-1.3); Hematocrit 27.7 % (36.0-45.0); Lymphocytes % 8.1 % (15.3-44.8); MPV 9.9 fL (7.6-11.3); RBC Red Blood Cell Count 2.91 M/uL (3.86-4.86)
[2019-04-29 07:28] LABS: Albumin 2.6 g/dL (3.4-5.0); Bilirubin Total 0.5 mg/dL (0.2-1.0); Potassium 3.4 mmol/L (3.5-5.1)
[2019-04-29] MEDS: APIXABAN 5 MG TABLET PO SCH ×2 (09:22→20:27)
[2019-04-29] MEDS: ASPIRIN EC 81 MG TAB PO SCH (09:22)
[2019-04-29] MEDS: PANTOPRAZOLE 40MG TABLET PO SCH (09:22)
[2019-04-29] MEDS: CEFTRIAXONE/SWI 1gm 1 GM/10 ML SYR IV SCH (09:22)
--- NOTE | 2019-04-29 11:55 | PN ---
Date of Progress Note: 04/29/2019 Subjective: Patient is seen and examined. Chart reviewed and case discussed with RN and Dr. Boss. Patient had a saline study with echocardiogram. No ASD was found yesterday. Patient is continued to be confused, is having some delirium and somewhat agitated, but not pulling at lines or trying to get out of bed. Easily redirectable. Medications: List reviewed. Physical Examination: Vital Signs: Temperature 99.2, heart rate 103, blood pressure 142/65, respirations 18, O2 of 97% on room air. T-max was 100.4 yesterday afternoon. General: Awake, alert, oriented to self, place, and date of . Able to answer questions appropr iately, however, does not follow commands. CV: S1, S2. Regular rate and rhythm. Peripheral pulses present. Respiratory: Moving air well bilaterally. No wheezing or stridor. Gastrointestinal: Abdomen is soft, nontender, nondistended. Positive bowel sounds. No guarding or rigidity. Extremities: No clubbing, cyanosis. Patient has chronic lymphedema. Neuro: Patient has weakness on the left side, 4/5. Laboratory Data: Sodium 146, potassium 3.4, chloride 113, CO2 of 25, BUN 56, creatinine 1.82, glucos e 94, calcium 8.2, AST 57, ALT 43. CK 1219. Albumin is 2.6. Triglycerides 139, cholesterol 237, LD L 144, HDL 65. WBC 8.1, H and H of 8.9 and 27.7, platelets 148, neutrophils 81%. Blood cultures, no growth to date. Urine culture, no growth to date. Echocardiogram, EF 73%. Hyperdynamic left ventr icular ejection fraction. Left ventricular hypertrophy. Dilated left atrium. Mild tricuspid regurg . Mild pulmonary hypertension. Saline study was done for possible atrial septal defect was negative . Assessment: A 69-year-old female with: 1.Acute cerebrovascular accident. MRI reviewed. Not a candidate for tPA. [facility] Continues to have confusion and weakness on the left side, improving. Continue stroke guideline s. No statin due to rhabdomyolysis. Continue anticoagulation with Eliquis, aspirin. 2.Acute metabolic encephalopathy, worsened. Patient is somewhat minimally agitated, but easily redi rectable. Unclear etiology. May use Haldol p.r.n. 3.Acute rhabdomyolysis, improving. CK level is trending down. Continue with IV fluids. 4.Acute kidney injury secondary to rhabdo and dehydration. Kidney function is improving. We will a void NSAIDs. Continue with IV fluids. Appreciate Nephrology input. 5.Elevated troponin level likely due to demand mismatch. Echocardiogram shows normal ejection fract ion. The atrial septal defect was evaluated further with saline study and was negative for atrial se ptal defect. 6.Coronary artery disease, [place] artery, [place] heart, without angina. Continue aspirin. 7.Chronic lymphedema. 8.Morbid obesity. BMI of 48. 9.Acute delirium. 10.Acute cystitis without hematuria. Continue Rocephin. Patient did have some fever spikes yesterd ay. Culture is negative. 11.Hypertensive heart disease. 12.Mild pulmonary hypertension. 13.Deep venous thrombosis prophylaxis, on Eliquis. Imaging Studies: Unable to do MRI of the cervical spine due to her neck circumference. CT cervical spine was done, negative for any acute cervical spine abnormality. She does have lower cervical spon dylolysis. Disposition: The patient will likely benefit from acute rehab once medically stable. Continue with PT, OT, and ST. SA/MODL Voice ID: [id number] Report ID: [id number]
[2019-04-29] MEDS ORDERED: POTASSIUM CL SA 10 MEQ TAB PO ONE (18:39)
--- NOTE | 2019-04-29 19:01 | PN ---
Date of Progress Note: 04/29/2019 Chief Complaint: Acute kidney injury. History Of Present Illness: Patient was started on IV fluids for rhabdomyolysis. CK level is improving. Patient is undergoing workup for acute kidney injury. An ultrasound was ordered and medication were adjusted to renal function. Lipitor is on hold due to rhabdomyolysis. Patient is a 69-year-old woman with history of colon cancer. She was on chemotherapy and radiation therapy. Last dosed was in October 2018. Her colostomy reversal in March 2019. She has chronic lymphedema, coronary artery disease. She was brought to the hospital because she was found to be unresponsive. She is very poor historian. She answer questions, but she is somewhat confused. Lab work in the ER showed creatinine of 2.73 and CK level was 3000. CK level is gradually improving. Review of Systems: Patient denies complaints. Denies fever, chills, PND, orthopnea. Physical Examination: Lungs: Clear to auscultation bilaterally. Heart: S1, S2. Abdomen: Soft, benign. Extremities: Edema present in both legs. Laboratory Data: Sodium 146, potassium 3.4, chloride 113, CO2 of 25, BUN is 56 , creatinine 1.82. CK level is 1219, calcium 8.5. Impression And Plan: 1. Acute kidney injury due to rhabdomyolysis. Continue IV fluids. Monitor for any evidence of hypophosphatemia. For hypokalemia, patient will receive replacement. 2. Hypertension. Continue blood pressure medication. 3. Generalized weakness. Patient currently is bedbound. Continue treatment for rhabdomyolysis and cardiac workup is initiated by Cardiology to rule out acute coronary syndrome. I spent total 35 min including 25 min to coordinate care plan. IRVIN/LALA Voice ID: [id number] Report ID: [id number] MTDD
[2019-04-30 05:04] LABS: Absolute Lymphocytes (CBC) 0.8 K/uL (0.7-4.9); Basophils % 0.2 % (0-1.3); Lymphocytes % 9.9 % (15.3-44.8); MPV 9.7 fL (7.6-11.3); RBC Red Blood Cell Count 2.97 M/uL (3.86-4.86)
[2019-04-30 05:07] LABS: Albumin 2.6 g/dL (3.4-5.0); Bilirubin Total 0.4 mg/dL (0.2-1.0); Phosphorus 2.2 mg/dL (2.5-4.9); Potassium 3.6 mmol/L (3.5-5.1); Protein, Total 5.9 g/dL (6.4-8.2)
[2019-04-30] MEDS: NA CHLORIDE 0.9% 1,000 ML IV SCH (08:00)
[2019-04-30] MEDS: ASPIRIN EC 81 MG TAB PO SCH (08:28)
[2019-04-30] MEDS: CEFTRIAXONE/SWI 1gm 1 GM/10 ML SYR IV SCH (08:28)
[2019-04-30] MEDS: APIXABAN 5 MG TABLET PO SCH ×2 (08:28→20:23)
[2019-04-30] MEDS: PANTOPRAZOLE 40MG TABLET PO SCH (08:28)
[2019-04-30] MEDS ORDERED: POTASSIUM PHOS IN 0.9 % NACL 15 MMOL/250 ML BAG IV ONE (10:37)
--- NOTE | 2019-04-30 11:29 | PN ---
Date of Progress Note: 04/30/2019 Subjective: Patient is seen and examined. Chart reviewed and case discussed with RN and Dr. Natarajan. Patient's agitation and confusion are improved. No acute events overnight. Medications: List reviewed. Physical Examination: Vital Signs: Temperature 99, heart rate 95, blood pressure 168/65, respirations 20, O2 of 97% on room air. General: Awake, alert, oriented x3, in some mild distress. Morbidly obese female. CV: S1, S2. Regular rate and rhythm. Peripheral pulses present. Respiratory: Moving air well bilaterally. No wheezing or stridor. No use of accessory muscles. Gastrointestinal: Abdomen is soft, nontender, nondistended. Positive bowel sounds. No guarding or rigidity. Extremities: No clubbing, cyanosis. Patient has lower extremity edema. Neuro: Cranial nerves 2 through 12 intact grossly. No focal neurological deficit. Speech is normal. Strength in the left upper extremity is significantly improved, now 5/5 in the upper extremity and 4+/5 in the left lower extremity. Laboratory Data: Sodium 147, potassium 3.6, chloride 115, CO2 of 26, BUN 39, creatinine 1.56, glucose 106, calcium 8, phosphorus 2.2, magnesium 2. AST 39, ALT 40, CK level is 562, albumin 2.6. WBC 8.1, H and H 9.1 and 28, platelets 140, neutrophils 79%. Blood cultures, no growth to date. Urine culture, no growth, final. Assessment: A 69-year-old female with: 1. Acute cerebrovascular accident. MRI, however, did not show any acute infarction. Appreciate Neurology input. Patient may also be suffering from compressive neuropathy due to her fall, as now her left upper extremity is significantly improved still has left lower extremity weakness. We will continue anticoagulation with Eliquis and aspirin. 2. Acute metabolic encephalopathy, improving. Patient no longer agitated or confused. Did not require any p.r.n. Haldol. 3. Acute rhabdomyolysis, improving. CK levels were down to 500. We will continue with IV fluids. 4. Acute kidney injury secondary to rhabdo and dehydration, improving. Avoid NSAIDs. We will adjust IV fluids. Nephrology on board. 5. Hypernatremia. We will correct and continue to monitor. 6. Elevated troponin level likely due to demand mismatch. Echo shows normal ejection fraction. No atrial septal defect. Appreciate Dr. Boss' input. 7. Coronary artery disease, [place] artery and [place] heart without angina, on aspirin. 8. Chronic lymphedema. 9. Morbid obesity, BMI 48. 10. Acute delirium, resolved. 11. Acute cystitis without hematuria. Patient is on Rocephin. No longer having any fevers, however, urine culture was negative. We will await final blood cultures. 12. Hypertensive heart disease. 13. Mild pulmonary hypertension. 14. Deep venous thrombosis prophylaxis, on Eliquis. Plan: [facility] facility placement. Discharge once medically stable and has been accepted. /LALA Voice ID: [id number] Report ID: [id number] KE
[2019-04-30] MEDS: D5 0.45 NS 1,000 ML IV SCH (11:54)
[2019-04-30] MEDS: ACETAMINOPHEN 500 MG TAB PO PRN (15:47)
--- NOTE | 2019-05-01 00:14 | PN ---
Date of Progress Note: 04/30/2019 Subjective: Patient is started on IV fluids for rhabdomyolysis. Patient has acute kidney injury, no noliguric secondary to rhabdomyolysis and prerenal azotemia. Ultrasound was done and did not show ob structive uropathy. Medication dose was adjusted to renal function. Patient was taking Lipitor and currently Lipitor is on hold due to rhabdomyolysis. CK level is stabi lizing. Lab work in the emergency room showed creatinine of 2.73. CK level 3000. Review of Systems: Denies fever, chills. Physical Examination: Lungs: Clear to auscultation bilaterally. Heart: S1, S2. Abdomen: Soft, benign. Extremities: Slight edema. Impression And Plan: 1.Acute kidney injury due to rhabdomyolysis. Continue IV fluids. Monitor fluid balance and monitor electrolytes. 2.Patient has hypertension. Continue blood pressure medication. 3.Generalized weakness, deconditioning. Patient is bedbound. Continue treatment for rhabdomyolysis . Cardiac workup is initiated by Cardiology. IRVIN/LALA Voice ID: [id number] Report ID: [id number]
[2019-05-01] MEDS: ACETAMINOPHEN 500 MG TAB PO PRN ×2 (02:12→17:34)
[2019-05-01 06:27] LABS: Absolute Lymphocytes (CBC) 0.9 K/uL (0.7-4.9); Basophils % 0.4 % (0-1.3); MPV 8.9 fL (7.6-11.3); RBC Red Blood Cell Count 2.96 M/uL (3.86-4.86)
[2019-05-01 06:50] LABS: Albumin 2.5 g/dL (3.4-5.0); Bilirubin Total 0.4 mg/dL (0.2-1.0); Potassium 3.5 mmol/L (3.5-5.1); Protein, Total 5.8 g/dL (6.4-8.2)
[2019-05-01] MEDS: D5 0.45 NS 1,000 ML IV SCH (08:03)
[2019-05-01] MEDS: ASPIRIN EC 81 MG TAB PO SCH (08:04)
[2019-05-01] MEDS: APIXABAN 5 MG TABLET PO SCH ×2 (08:04→20:20)
[2019-05-01] MEDS: CEFTRIAXONE/SWI 1gm 1 GM/10 ML SYR IV SCH (08:04)
[2019-05-01] MEDS: PANTOPRAZOLE 40MG TABLET PO SCH (08:05)
--- NOTE | 2019-05-01 17:59 | PN ---
Date of Progress Note: 05/01/2019 Subjective: The patient seen and examined. Chart reviewed and case discussed with RN and Dr. Nai phoenix. Family at the bedside. Treatment plan explained, all questions answered. Patient was about to get up and work with physical therapy. No further episodes of agitation overnight or delirium. Medications: List reviewed. Physical Examination: Vital Signs: Temperature 98.6, heart rate 90, blood pressure 125/60, respirations 17, O2 of 96% on r oom air. General: Awake, alert, oriented x3. Elderly female, morbidly obese, not in any acute distress. CV: S1, S2. Regular rate and rhythm. Peripheral pulses present. Respiratory: Moving air well bilaterally. No wheezing or stridor. No use of accessory muscles. Gastrointestinal: Abdomen is soft, nontender, nondistended. Positive bowel sounds. No guarding or rigidity. Extremities: No clubbing, cyanosis. The patient has chronic lower extremity edema. Neurologic: Cranial nerves 2 through 12 intact grossly. Patient has 5/5 strength in bilateral upper extremities, 3/5 strength in left lower extremity, and 5/5 strength in the right lower extremity. Laboratory Data: Sodium 146, potassium 3.5, chloride 113, CO2 of 28, BUN 25, creatinine 1.43, glucos e 100, calcium 8.1, albumin 2.5. WBC 8, H and H 9.3 and 28, platelets 157, neutrophils 76%. Blood c ultures and urine culture, no growth to date. Assessment: A 69-year-old female with: 1.Acute cerebrovascular accident. Patient has weakness on the left side, currently on aspirin and E liquis. Appreciate Neurology input. May also be compressive neuropathy as MRI did not show any acut e stroke. We will discuss further with Neurology. 2.Acute metabolic encephalopathy, improving. The patient now back to baseline. No further confusio n. 3.Acute rhabdomyolysis. CK levels improved. Continue with IV fluids. 4.Acute kidney injury secondary to rhabdo and dehydration, improved. Appreciate Dr. Marcial's input. Continue with IV fluids. Avoid NSAIDs. 5.Hypernatremia. We will continue to monitor. Improving, currently at 146. 6.Elevated troponin level, likely due to demand mismatch. Echo shows normal ejection fraction. No atrial septal defect. Cardiology signed off. 7.Coronary artery disease, [place] artery, [place] heart, without angina. Continue aspirin. 8.Chronic lymphedema. 9.Morbid obesity. BMI 48. 10.Acute delirium, resolved. 11.Acute cystitis without hematuria. Patient is on Rocephin. Cultures are negative. We will disco ntinue antibiotics. No further fevers. 12.Hypertensive heart disease. 13.Mild pulmonary hypertension. 14.Deep venous thrombosis prophylaxis. Patient is on Eliquis. Plan: Transfer to group home facility once accepted. /LALA Voice ID: [id number] Report ID: [id number]
--- NOTE | 2019-05-02 03:37 | PN ---
Date of Progress Note: 05/01/2019 Chief Complaint: Acute on chronic kidney injury, rhabdomyolysis. Subjective: Patient is on IV fluids to treat acute kidney injury and provide management for rhabdomy olysis. Patient developed prerenal azotemia. Ultrasound was done and did not show obstructive uropa thy. Patient was taken off Lipitor due to rhabdomyolysis. CK level and renal function stabilizing i n response to IV fluids. Review of Systems: Denies fever, chills. Physical Examination: Lungs: Clear to auscultation bilaterally. Heart: S1, S2. Abdomen: Soft, benign. Extremities: Slight edema. Impression And Plan: 1.Acute kidney injury due to rhabdomyolysis and prerenal azotemia. Continue IV fluids. Monitor flu id balance. 2.Patient has hypertension. Continue blood pressure medication. Avoid ARNALDO inhibitor due to acute k idney injury. 3.Generalized weakness, deconditioning. Patient is bedbound. Continue treatment for rhabdomyolysis . Lipitor is on hold. EB/MODL Voice ID: [id number] Report ID: [id number]
[2019-05-02] MEDS: D5 0.45 NS 1,000 ML IV SCH (04:13)
[2019-05-02 04:57] LABS: Absolute Lymphocytes (CBC) 0.8 K/uL (0.7-4.9); Basophils % 0.3 % (0-1.3); Hematocrit 27.3 % (36.0-45.0); Lymphocytes % 11.6 % (15.3-44.8); MPV 9.1 fL (7.6-11.3); RBC Red Blood Cell Count 2.84 M/uL (3.86-4.86)
[2019-05-02 05:17] LABS: Albumin 2.5 g/dL (3.4-5.0); Bilirubin Total 0.3 mg/dL (0.2-1.0); Potassium 3.4 mmol/L (3.5-5.1); Protein, Total 5.7 g/dL (6.4-8.2)
[2019-05-02] MEDS: ASPIRIN EC 81 MG TAB PO SCH (08:47)
[2019-05-02] MEDS: PANTOPRAZOLE 40MG TABLET PO SCH (08:47)
[2019-05-02] MEDS: APIXABAN 5 MG TABLET PO SCH ×2 (08:47→20:00)
--- NOTE | 2019-05-02 13:18 | P.PN ---
Subjective Date of Service: 05/02/19 Chief Complaint: LOC Patient states she feels better today. She stated she has been able to transfer. She states her left extremity weakness are improving and can move the left upper extremity and left lower extremity more. Physical Examination - Vital Signs Temperature: 97.7 F Blood Pressure: 143/65 Pulse: 92 Respirations: 16 Pulse Ox (%): 97 - Physical Exam General: Alert, In no apparent distress, Oriented x3 HEENT: Normocephalic, Mucous membr. moist/pink Neck: Supple, JVD not distended Respiratory: Clear to auscultation bilaterally, Normal air movement Cardiovascular: Regular rate/rhythm, Normal S1 S2 Gastrointestinal: Normal bowel sounds, Soft and benign, Non-distended Musculoskeletal: Other (Bilateral lower extremity lymphedema) Integumentary: Other (Bruise-left shoulder) Neurological: Normal speech, Cranial nerves 3-12 intact, Other (Left-sided weakness- LUE and LLE motor are 4/5.) Assessment And Plan - Current Problems (Diagnosis) (1) Acute CVA (cerebrovascular accident) Current Visit: Yes Status: Acute (2) History of DVT (deep vein thrombosis) Current Visit: Yes Status: Acute (3) Acute renal failure Current Visit: Yes Status: Acute (4) Rhabdomyolysis Current Visit: Yes Status: Acute (5) Hypertension Current Visit: No Status: Acute (6) Morbid obesity with BMI of 50.0-59.9, adult Current Visit: No Status: Acute (7) Lymphedema Onset Date: 08/06/15 Current Visit: No Status: Chronic (8) Cystitis Current Visit: No Status: Resolved (9) Anemia Current Visit: Yes Status: Acute - Plan Continue IV hydration. Continue Apixaban for anticoagulation. Continue aspirin. Patient seen by Neurology. Will get CT cervical, thoracic and lumbar spine given the history of fall and the fact that patient is on anticoagulation. PT and OT. Monitor BMP. Control blood pressure. Resume metoprolol.
--- NOTE | 2019-05-02 14:42 | RAD REPORT ---
EXAM DESCRIPTION: CT - C Spine Wo Con - 05/02/2019 2:28 pm CLINICAL HISTORY: Left sided weakness Radiculopathy COMPARISON: Thoracic Spine W/o Cont dated 05/02/2019; C Spine Wo Con dated 04/28/2019 FINDINGS: Mild disc thinning is present with small posterior osteophyte noted lower cervical levels. Findings are most prominent at C5-6 and C6-7. Anterior osteophytosis also noted in this region. Mild foraminal encroachment is seen related to uncovertebral and facet spurring bilaterally at C5-6 and C 6-7. Posterior spurs mildly narrow the central canal is well. No evidence of acute cervical spine fracture or subluxation. No paraspinal mass or hematoma evident. Prevertebral soft tissues are normal in thickness. IMPRESSION: Mild to moderate lower cervical degenerative changes are present resulting in mild centr al canal and exit foraminal narrowing. If further assessment is clinically desired, MR cervical spine would be suggested. All CT scans are performed using dose optimization technique as appropriate and may include automated exposure control or mA/KV adjustment according to patient size.
--- NOTE | 2019-05-02 14:44 | RAD REPORT ---
EXAM DESCRIPTION: CT - Thoracic Spine W/o Cont - 05/02/2019 2:28 pm CLINICAL HISTORY: Radiculopathy. Left sided weakness COMPARISON: C Spine Wo Con dated 04/28/2019 TECHNIQUE: Axial CT imaging through the thoracic spine was performed with coronal and sagittal re-fo rmatted images. All CT scans are performed using dose optimization technique as appropriate and may include automated exposure control or mA/KV adjustment according to patient size. FINDINGS: A mild diffuse thyroid goiter is noted. Mild disc thinning with small posterior osteophytes and anterior osteophytosis noted upper thoracic s pine. A compression fracture is not present. Bridging lateral osteophytes are present particularly al luz maria the right involving the mid and lower thoracic spine. Thoracic spine alignment is within normal limits. No paraspinal masses or hematoma. Grossly, no high-grade canal or foraminal stenosis is seen although CT is limited in intra canal asse ssment. Small bilateral pleural effusions noted. IMPRESSION: Mild diffuse pattern of thoracic spondylosis is seen. No compression fracture or malalig nment. Further evaluation is clinically needed, MR imaging of the thoracic spine could be obtained.
--- NOTE | 2019-05-02 14:48 | RAD REPORT ---
EXAM DESCRIPTION: CT - Spine Lumbar Wo Con - 05/02/2019 2:28 pm CLINICAL HISTORY: Radiculopathy. Left sided weakness COMPARISON: Thoracic Spine W/o Cont dated 05/02/2019; C Spine Wo Con dated 05/02/2019 TECHNIQUE: Axial noncontrast CT imaging of the lumbar spine was performed with coronal and sagittal re-formatted images. All CT scans are performed using dose optimization technique as appropriate and may include automated exposure control or mA/KV adjustment according to patient size. FINDINGS: No acute lumbar spine fracture seen. No aggressive marrow pattern or malalignment. Paraspinal tissues are normal in thickness. No paraspinal abscess or hematoma seen. Moderate lower lumbar degenerative changes are present, there is evidence of significant central junior l stenosis at L4-5 as a result of significant facet hypertrophy and bulging of disc material. IMPRESSION: Significant/severe central canal stenosis at L4-5 suspected. Consider MRI follow-up for assessment of disc disease if clinically desired.
--- NOTE | 2019-05-02 17:40 | PN ---
Date of Progress Note: 05/02/2019 Subjective: The patient was admitted with acute kidney injury and CVA. Upon admission, creatinine w as 2.7, currently creatinine down to 1.3. Patient feeling better. Patient also had rhabdo. Physical Examination: Vital Signs: Blood pressure 143/67, pulse of 92. Chest: Decreased entry bilateral base. Heart: S1, S2. Regular. Abdomen: Soft, nontender. Extremities: Plus edema. Laboratory Data: Sodium 146, potassium 3.4, bicarb 28, BUN 21, creatinine 1.3, calcium of 8. H and H are 8.8/27. Current Medications: The patient on include: 1.Aspirin. 2.Eliquis. 3.Zofran. 4.D5 half. Assessment And Plan: 1.Acute kidney injury secondary to prerenal, recovered, resolved. I am going to discontinue D5 half . 2.Hypernatremia. We will change IV fluid to plain D5. 3.Hypokalemia. We will add potassium to the fluid. 4.Cerebrovascular accident. Continue supportive treatment. 5.Hypertension. With the presence of hypokalemia in black race, I am going to add spironolactone. MA/MODL Voice ID: [id number] Report ID: [id number]
[2019-05-02] MEDS: D5W 1,000 ML IV SCH (19:59)
[2019-05-03 05:35] LABS: Absolute Lymphocytes (CBC) 0.7 K/uL (0.7-4.9); Basophils % 0.4 % (0-1.3); Hematocrit 26.4 % (36.0-45.0); Lymphocytes % 11.5 % (15.3-44.8); MPV 9.4 fL (7.6-11.3); RBC Red Blood Cell Count 2.78 M/uL (3.86-4.86)
[2019-05-03 05:56] LABS: Albumin 2.4 g/dL (3.4-5.0); Phosphorus 2.9 mg/dL (2.5-4.9); Potassium 3.4 mmol/L (3.5-5.1)
[2019-05-03] MEDS ORDERED: POTASSIUM CL 40 MEQ in NA CHLORIDE 0.9% 500 ML IV SCH (10:00)
[2019-05-03] MEDS: D5W 1,000 ML IV SCH (10:00)
[2019-05-03] MEDS: SPIRONOLACTONE 25 MG TABLET PO SCH (10:10)
[2019-05-03] MEDS: APIXABAN 5 MG TABLET PO SCH ×2 (10:11→22:13)
[2019-05-03] MEDS: ASPIRIN EC 81 MG TAB PO SCH (10:11)
[2019-05-03] MEDS: PANTOPRAZOLE 40MG TABLET PO SCH (10:12)
[2019-05-03] MEDS: ACETAMINOPHEN 500 MG TAB PO PRN ×2 (14:23→22:20)
[2019-05-03] MEDS ORDERED: POTASSIUM 25 MEQ EFFERV TAB PO ONE (16:00)
--- NOTE | 2019-05-03 16:00 | P.PN ---
Subjective Date of Service: 05/03/19 Chief Complaint: LOC Patient seen taking small steps with a walker during physical therapy session today. Noted that she has stage II decubitus ulcer at the left gluteal area. She is complaining of pain in the left shoulder which is affecting her ability to lift her left arm. She also complains of numbness and heaviness in the left lower extremity which per patient has been present since completing her chemotherapy. 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 Physical Examination - Vital Signs Temperature: 98.3 F Blood Pressure: 177/76 Pulse: 102 Respirations: 18 Pulse Ox (%): 100 - Physical Exam General: Alert, In no apparent distress, Oriented x3 HEENT: Mucous membr. moist/pink Neck: Supple, JVD not distended Respiratory: Clear to auscultation bilaterally, Normal air movement Cardiovascular: Regular rate/rhythm, Normal S1 S2, Edema (Bilateral lower extremities, worse on the left.) Gastrointestinal: Normal bowel sounds, Soft and benign, No tenderness Musculoskeletal: Swelling (Right upper extremity is swollen. This is chronic.) Integumentary: Erythema (Left shoulder area) Neurological: Normal speech, Normal strength at 5/5 x4 extr, Cranial nerves 3- 12 intact - Studies Microbiology Data (last 24 hrs): 04/27/19 14:15 Blood - Blood Aerobic Blood Culture - Final No growth in 5 days. 04/27/19 14:15 Blood - Blood Anaerobic Blood Culture - Final No growth in 5 days. 04/27/19 14:00 Blood - Blood Aerobic Blood Culture - Final No growth in 5 days. 04/27/19 14:00 Blood - Blood Anaerobic Blood Culture - Final No growth in 5 days. Assessment And Plan - Current Problems (Diagnosis) (1) Acute CVA (cerebrovascular accident) Current Visit: Yes Status: Acute (2) History of DVT (deep vein thrombosis) Current Visit: Yes Status: Acute (3) Acute renal failure Current Visit: Yes Status: Acute (4) Rhabdomyolysis Current Visit: Yes Status: Acute (5) Hypertension Current Visit: No Status: Acute (6) Morbid obesity with BMI of 50.0-59.9, adult Current Visit: No Status: Acute (7) Lymphedema Onset Date: 08/06/15 Current Visit: No Status: Chronic (8) Anemia Current Visit: Yes Status: Acute - Plan Continue Apixaban for anticoagulation. Continue aspirin. CT cervical thoracic and lumbar spine results reviewed. CT lumbar spine report significant severe central canal stenosis. Not sure if this is related to patient's new symptoms. Case discussed with Dr. Natarajan. Patient will need outpatient neurosurgery follow up. Patient stated she is not keen on any surgery at this time. Will get MRI of the lumbar spine to further evaluate. Neurology to follow Contain PT and OT. Monitor BMP. Continue blood pressure medication. Wound care consult for decubitus ulcer. Patient is waiting for rehab placement.
--- NOTE | 2019-05-03 20:02 | PN ---
Date of Progress Note: 05/03/2019 Subjective: Patient was admitted with acute kidney injury. Patient started recovering very well. T shaylee, patient is more awake. Patient also admitted with CVA, status post tPA. Patient is feeling mu ch better, sitting in the chair today. Physical Examination: Vital Signs: When I saw, the patient's blood pressure 145/81, pulse of 107, afebrile. Patient had g ood urine output of 150. Chest: Decreased air entry at bilateral bases. Heart: S1, S2. Regular. Abdomen: Soft, nontender. Extremities: Trace edema. Neurologic: Alert. Laboratory Data: WBC 6.4, H and H 8.6/26.4, platelets 157. Sodium 144, potassium of 3.4, bicarb 27, BUN 17, creatinine 1.4, GFR of 43, calcium 7.9, phosphorus 2.9, albumin 2.4. P-C ratio of 0.4. Current Medications: Include, 1.Eliquis. 2.Aspirin. 3.Spironolactone. 4.Pantoprazole. Assessment And Plan: 1.Acute kidney injury secondary to prerenal, recovering. I am going to go ahead and decrease IV flu id. Plan to discontinue. 2.Hypertension, controlled. Yesterday, we started the patient on spironolactone. We are going to g o ahead and resume metoprolol to 25 mg, and we will follow up. 3.Hypokalemia. We will supplement. 4.Cerebrovascular accident. Continue supportive care. SHORTY Voice ID: [id number] Report ID: [id number]
[2019-05-04 05:50] LABS: Absolute Lymphocytes (CBC) 0.5 K/uL (0.7-4.9); Basophils % 0.8 % (0-1.3); Hematocrit 26.1 % (36.0-45.0); Lymphocytes % 8.3 % (15.3-44.8); MPV 9.4 fL (7.6-11.3); RBC Red Blood Cell Count 2.74 M/uL (3.86-4.86)
[2019-05-04 05:59] LABS: Albumin 2.5 g/dL (3.4-5.0); Phosphorus 2.8 mg/dL (2.5-4.9); Potassium 3.7 mmol/L (3.5-5.1)
[2019-05-04] MEDS ORDERED: METOPROLOL TAR 25 MG TAB PO SCH (09:00)
[2019-05-04] MEDS: METOPROLOL XL 50 MG TAB PO SCH (09:00)
[2019-05-04] MEDS: PANTOPRAZOLE 40MG TABLET PO SCH (09:40)
[2019-05-04] MEDS: SPIRONOLACTONE 25 MG TABLET PO SCH (09:40)
[2019-05-04] MEDS: APIXABAN 5 MG TABLET PO SCH ×2 (09:41→21:01)
[2019-05-04] MEDS: ASPIRIN EC 81 MG TAB PO SCH (09:41)
[2019-05-04] MEDS ORDERED: POTASSIUM 25 MEQ EFFERV TAB PO ONE (10:26)
--- NOTE | 2019-05-04 11:54 | RAD REPORT ---
EXAM DESCRIPTION: MRI - Lumbar Spine Wo Con - 05/04/2019 11:28 am CLINICAL HISTORY: Ataxia/lumbar spinal stenosis COMPARISON: CT lumbar spine May 02, 2019 TECHNIQUE: Sagittal T1, T2 and STIR weighted sequences were obtained. Axial T1 and T2 sequences were obtained through the lumbar disc levels. FINDINGS: Mild spondylosis L1-2 and L2-3 Disc bulge, osteophytes, ligamentum flavum and facet hypertrophy L3-4 narrows the thecal sac to 5.5 m illimeters. Moderate to marked narrowing of the neural foramina bilaterally Disc bulge, osteophytes, ligamentum flavum and facet hypertrophy L4-5 narrow the thecal sac 7 millime ters. Marked narrowing of the right and moderate to marked narrowing left neural foramina Mild spondylosis L5-S1 No significant abnormal signal within the bones IMPRESSION: Spondylosis L3-4 resulting in moderate to marked central spinal stenosis Spondylosis L4-5 resulting in mild to moderate central spinal stenosis and marked right foraminal jabier nosis
[2019-05-04] MEDS ORDERED: METOPROLOL TAR 25 MG TAB PO ONE (12:15)
--- NOTE | 2019-05-04 12:46 | P.PN ---
Subjective Date of Service: 05/04/19 Chief Complaint: LOC Patient seen participating in physical therapy. She she mentioned the pain in the left shoulder is better today. She also complains of numbness and heaviness in the left lower extremity which per patient has been present since completing her chemotherapy. 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 It appears strength in her left extremities have improved. Physical Examination - Vital Signs Temperature: 98.2 F Blood Pressure: 147/67 Pulse: 92 Respirations: 20 Pulse Ox (%): 99 - Physical Exam General: Alert, In no apparent distress, Oriented x3 HEENT: Mucous membr. moist/pink Neck: Supple, JVD not distended Respiratory: Clear to auscultation bilaterally, Normal air movement Cardiovascular: Regular rate/rhythm, Normal S1 S2 Gastrointestinal: Normal bowel sounds, Non-distended, No tenderness Musculoskeletal: No erythema Neurological: Normal speech, Normal strength at 5/5 x4 extr Assessment And Plan - Current Problems (Diagnosis) (1) Acute CVA (cerebrovascular accident) Current Visit: Yes Status: Acute (2) History of DVT (deep vein thrombosis) Current Visit: Yes Status: Acute (3) Acute renal failure Current Visit: Yes Status: Acute (4) Rhabdomyolysis Current Visit: Yes Status: Resolved (5) Hypertension Current Visit: No Status: Acute (6) Morbid obesity with BMI of 50.0-59.9, adult Current Visit: No Status: Acute (7) Lymphedema Onset Date: 08/06/15 Current Visit: No Status: Chronic (8) Anemia Current Visit: Yes Status: Acute - Plan Continue Apixaban for anticoagulation. Continue aspirin. Check stool for occult blood given anemia. CT cervical thoracic and lumbar spine results reviewed. CT lumbar spine report significant severe central canal stenosis. Not sure if this is related to patient's new symptoms. Case discussed with Dr. Natarajan. Patient will need outpatient neurosurgery follow up. Patient stated she is not keen on any surgery at this time. MRI of the lumbar spine report [id number] central spinal stenosis at L3 and L4. Neurology to follow. Continue to monitor hemoglobin daily Continue PT. Continue blood pressure medication. Local wound care for Decubitus ulcer. Frequent turning, decubitus ulcer precautions. Patient is waiting for rehab placement.
[2019-05-04] MEDS: MEDIHONEY 44 ML TOPICAL TUBE TOP SCH (15:18)
[2019-05-04] MEDS: ACETAMINOPHEN 500 MG TAB PO PRN (21:01)
--- NOTE | 2019-05-05 00:34 | PN ---
Date of Progress Note: 05/04/2019 History: Patient was admitted with CVA status post tPA. Patient had acute kidney injury secondary t o urgent hypertension. Blood pressure being controlled, slightly better. Physical Examination: Vital Signs: Blood pressure of 155/74, pulse of 104, afebrile. Chest: Clear to auscultation. Heart: S1, S2. Systolic murmur. Abdomen: Soft, nontender. Extremities: No edema. Laboratory Data: WBC 6.1, H and H 8.3 and 26.1, platelet 172. Sodium 143, potassium 3.7, bicarb 27, BUN 15, creatinine 1.4, calcium 8.2, phosphor 2.8, albumin 2.5. Medications: 1.Metoprolol 25 mg. 2.Aspirin. 3.Eliquis. 4.Spironolactone 25. 5.Zofran for period of 6 months. Assessment And Plan: 1.Acute kidney injury secondary to hypertension. Patient in the recovery phase, currently plateau. Normal volume, keep holding IV fluid. 2.Hypertension. We will increase metoprolol to 50 daily, we will monitor. 3.Cerebrovascular accident. Continue PT. 4.Hypokalemia. Continue spironolactone. 5.Rhabdo secondary to cerebrovascular accident, recovered, resolved. YFN/LALA Voice ID: [id number] Report ID: [id number]
[2019-05-05 05:48] LABS: Albumin 2.4 g/dL (3.4-5.0); Potassium 3.9 mmol/L (3.5-5.1)
[2019-05-05 06:08] LABS: Absolute Lymphocytes (CBC) 0.5 K/uL (0.7-4.9); Basophils % 0.6 % (0-1.3); Hematocrit 24.7 % (36.0-45.0); Lymphocytes % 8.6 % (15.3-44.8); MPV 9.2 fL (7.6-11.3); RBC Red Blood Cell Count 2.62 M/uL (3.86-4.86)
[2019-05-05] MEDS: PANTOPRAZOLE 40MG TABLET PO SCH (10:42)
[2019-05-05] MEDS: APIXABAN 5 MG TABLET PO SCH ×2 (10:42→20:42)
[2019-05-05] MEDS: METOPROLOL XL 50 MG TAB PO SCH (10:42)
[2019-05-05] MEDS: SPIRONOLACTONE 25 MG TABLET PO SCH (10:42)
[2019-05-05] MEDS: ASPIRIN EC 81 MG TAB PO SCH (10:42)
[2019-05-05] MEDS: MEDIHONEY 44 ML TOPICAL TUBE TOP SCH (10:43)
--- NOTE | 2019-05-05 11:35 | P.PN ---
Subjective Date of Service: 05/05/19 Chief Complaint: LOC No major changes from yesterday. Her performance status is improving with physical therapy. She is not able to ambulate to the bathroom with a walker. Physical Examination - Vital Signs Temperature: 99.0 F Blood Pressure: 124/60 Pulse: 92 Respirations: 18 Pulse Ox (%): 98 - Physical Exam General: Alert, In no apparent distress, Oriented x3, Obese HEENT: Mucous membr. moist/pink, Sclerae nonicteric Neck: Supple, JVD not distended Respiratory: Clear to auscultation bilaterally, Normal air movement Cardiovascular: Regular rate/rhythm, Normal S1 S2 Gastrointestinal: Normal bowel sounds, Soft and benign, No tenderness Musculoskeletal: Other (Bilateral lower extremity lymphedema) Neurological: Normal speech, Normal strength at 5/5 x4 extr Assessment And Plan - Current Problems (Diagnosis) (1) Acute CVA (cerebrovascular accident) Current Visit: Yes Status: Acute (2) History of DVT (deep vein thrombosis) Current Visit: Yes Status: Acute (3) Acute renal failure Current Visit: Yes Status: Acute (4) Rhabdomyolysis Current Visit: Yes Status: Resolved (5) Hypertension Current Visit: No Status: Acute (6) Morbid obesity with BMI of 50.0-59.9, adult Current Visit: No Status: Acute (7) Lymphedema Onset Date: 08/06/15 Current Visit: No Status: Chronic (8) Anemia Current Visit: Yes Status: Acute (9) Lumbar spinal stenosis Current Visit: Yes Status: Acute - Plan Continue Apixaban. Continue aspirin. Check stool for occult blood given anemia. CT lumbar spine report significant severe central canal stenosis. Not sure if this is related to patient's new symptoms. Case discussed with Dr. Natarajan. Patient will need outpatient neurosurgery follow up. Patient stated she is not keen on any surgery at this time. MRI of the lumbar spine result discussed with Dr. Thompson-Neurosurgery at [facility]. Patient does not have symptoms or signs of cauda equina. No urgent need for intervention per neurosurgery. He recommended to continue physical therapy and follow up as an outpatient. Neurology to follow. Continue to monitor hemoglobin daily Continue PT. Continue antihypertensives. Local wound care for Decubitus ulcer. Frequent turning, decubitus ulcer precautions. Patient is waiting for rehab placement.
--- NOTE | 2019-05-05 13:34 | P.PN ---
Subjective Date of Service: 05/05/19 Chief Complaint: LOC Subjective Pt with listed PMHx found unresponsive and brought to the hospital labs in ER creatinine of 2.73. CK level was 3000. today no overnight events BP better controlled RFT stable pending placement Allergies - Past Medical/Surgical History Diabetic: No -: Lymphedema BLE -: Hx [place] -: HTN -: Hyperlipidemia -: DVT -: Cancer -: hysterectomy -: tonsillectomy - Family History Father Medical History: Hypertension, Stroke Notes: hemorrhagic stroke - Social History Alcohol use: No CD- Drugs: No Caffeine use: No Place of Residence: Home Physical Examination General: Alert, In no apparent distress, Obese HEENT: Atraumatic, Normocephalic Neck: Supple, Without JVD or thyroid abnormality Respiratory: Clear to auscultation bilaterally, Normal air movement Cardiovascular: No edema, Regular rate/rhythm, Normal S1 S2, No gallops, No rubs , No murmurs Gastrointestinal: Normal bowel sounds, Soft and benign Musculoskeletal: No swelling Conclusions/Impression: SAMI Cr now stable at 1.4 CKD likely due to HT nephrosclerosis SAMI possibly due to Rhabdomyolysis rhabdomyolisis resolved TIA cont supportive care HX of DVT on Eliquis HTN controlled now Physical Examination - Vital Signs Temperature: 99.0 F Blood Pressure: 124/60 Pulse: 92 Respirations: 18 Pulse Ox (%): 98
[2019-05-05] MEDS: ACETAMINOPHEN 500 MG TAB PO PRN (20:42)
[2019-05-06 06:46] LABS: Absolute Lymphocytes (CBC) 0.4 K/uL (0.7-4.9); Hematocrit 24.6 % (36.0-45.0); Lymphocytes % 7.6 % (15.3-44.8); MPV 9.3 fL (7.6-11.3); RBC Red Blood Cell Count 2.61 M/uL (3.86-4.86)
[2019-05-06] MEDS: ASPIRIN EC 81 MG TAB PO SCH (08:43)
[2019-05-06] MEDS: APIXABAN 5 MG TABLET PO SCH (08:43)
[2019-05-06] MEDS: PANTOPRAZOLE 40MG TABLET PO SCH (08:43)
[2019-05-06] MEDS: SPIRONOLACTONE 25 MG TABLET PO SCH (08:43)
[2019-05-06] MEDS: METOPROLOL XL 50 MG TAB PO SCH (08:43)
[2019-05-06] MEDS: MEDIHONEY 44 ML TOPICAL TUBE TOP SCH (08:44)
--- NOTE | 2019-05-06 12:05 | P.PN ---
Subjective Date of Service: 05/06/19 Chief Complaint: LOC No major changes from yesterday. Patient has no complain today. She was seen sitting up in a chair. She is able to ambulate to the bathroom with a walker. Noted drop in hemoglobin to 7.9. Stool for occult blood is positive. Patient reports prior history of gastric ulcers. Physical Examination - Vital Signs Temperature: 99.6 F Blood Pressure: 134/61 Pulse: 88 Respirations: 18 Pulse Ox (%): 98 - Physical Exam General: Alert, In no apparent distress, Oriented x3 HEENT: Mucous membr. moist/pink, Sclerae nonicteric Neck: Supple, JVD not distended Respiratory: Clear to auscultation bilaterally, Normal air movement Cardiovascular: Regular rate/rhythm, Normal S1 S2 Gastrointestinal: Normal bowel sounds, Soft and benign, No tenderness Musculoskeletal: Other (Bilateral lower extremity lymphedema) Neurological: Normal speech, Normal strength at 5/5 x4 extr Assessment And Plan - Current Problems (Diagnosis) (1) Acute CVA (cerebrovascular accident) Current Visit: Yes Status: Acute (2) History of DVT (deep vein thrombosis) Current Visit: Yes Status: Acute (3) Acute renal failure Current Visit: Yes Status: Acute (4) Rhabdomyolysis Current Visit: Yes Status: Resolved (5) Hypertension Current Visit: No Status: Acute (6) Morbid obesity with BMI of 50.0-59.9, adult Current Visit: No Status: Acute (7) Lymphedema Onset Date: 08/06/15 Current Visit: No Status: Chronic (8) Anemia Current Visit: Yes Status: Acute (9) Lumbar spinal stenosis Current Visit: Yes Status: Acute (10) GI bleed Current Visit: Yes Status: Acute - Plan Stop Apixaban. Start heparin drip. IV protonix. GI consult to evaluate GI bleed. Continue aspirin. Neurology to follow. Continue to monitor hemoglobin daily. Patient will benefit from 1 unit PRBC transfusion given decreased functional status Continue PT. Continue antihypertensives. Local wound care for Decubitus ulcer. Frequent turning, decubitus ulcer precautions. Follow up with Neurosurgery as outpatient for lumbar spinal stenosis
[2019-05-06] MEDS ORDERED: NA CHLORIDE 0.9% 250 ML IV SCH (13:00)
[2019-05-06] MEDS: ACETAMINOPHEN 500 MG TAB PO PRN (14:11)
[2019-05-06 14:33] LABS: Protime INR 1.36
[2019-05-06] MEDS: HEPARIN/D5W 25,000 UNIT/500 ML BAG IV SCH (14:59)
[2019-05-06] MEDS ORDERED: NA CHLORIDE 0.9% 250 ML ONE (16:27)
[2019-05-06 22:54] LABS: Hematocrit 26.7 % (36.0-45.0)
[2019-05-07] MEDS: ACETAMINOPHEN 500 MG TAB PO PRN ×4 (00:37→21:28)
--- NOTE | 2019-05-07 01:32 | PN ---
Date of Progress Note: 05/06/2019 Subjective: Patient was admitted with CVA status post tPA. Patient had acute kidney injury secondar y to urgent hypertension. Patient's blood pressure being better controlled. Physical Examination: Vital Signs: Blood pressure is 148/75, pulse of 98, afebrile. Chest: Clear to auscultation. Heart: S1, S2 regular. Abdomen: Soft, nontender. Extremities: Trace edema. Laboratory Data: H and H 7.9/24.6. Sodium 145, potassium 3.5, bicarb 29, BUN 16, creatinine 1.4, ca lcium 8.4, phosphorus of 3, albumin 2.4. Current Medications: The patient on include: 1.Aspirin. 2.Metoprolol succinate 50 daily. 3.Spironolactone. 4.Pantoprazole. Assessment And Plan: 1.Acute kidney injury secondary to urgent hypertension, recover likely. 2.Hypertension, controlled, optimal. Continue current medication. 3.Anemia. I am going to go ahead and send for anemia workup. 4.Cerebrovascular accident. Continue current treatment. We will follow up. SHORTY Voice ID: [id number] Report ID: [id number]
[2019-05-07 07:29] LABS: Absolute Lymphocytes (CBC) 0.5 K/uL (0.7-4.9); Basophils % 1.1 % (0-1.3); Hematocrit 27.5 % (36.0-45.0); Lymphocytes % 10.9 % (15.3-44.8); MPV 9.2 fL (7.6-11.3); RBC Red Blood Cell Count 2.95 M/uL (3.86-4.86)
[2019-05-07 08:16] LABS: Albumin 2.4 g/dL (3.4-5.0); Ferritin 168.9 ng/mL (8-388); Phosphorus 3.6 mg/dL (2.5-4.9); Potassium 3.7 mmol/L (3.5-5.1)
[2019-05-07] MEDS: ASPIRIN EC 81 MG TAB PO SCH (09:16)
[2019-05-07] MEDS: METOPROLOL XL 50 MG TAB PO SCH (09:16)
[2019-05-07] MEDS: SPIRONOLACTONE 25 MG TABLET PO SCH ×2 (09:17→20:36)
[2019-05-07] MEDS: PANTOPRAZOLE 40MG TABLET PO SCH (09:17)
[2019-05-07] MEDS: MEDIHONEY 44 ML TOPICAL TUBE TOP SCH (09:21)
--- NOTE | 2019-05-07 10:48 | RAD REPORT ---
EXAM DESCRIPTION: RAD - Shoulder Left 2 View - 05/07/2019 10:06 am CLINICAL HISTORY: Fall with left shoulder pain COMPARISON: Chest Pa And Lat (2 Views) dated 05/31/2017 TECHNIQUE: Internal and external rotation views of the left shoulder were obtained. FINDINGS: No fracture or dislocation of the proximal humerus. Mild marginal spurring seen at the hum eral head articular surface. Acromial humeral joint space is normal. AC joint separation is present. No fracture identified. AC joint positioning is substantially different from the 2018 comparison. No acute rib finding in the upper chest. IMPRESSION: Left AC joint separation.
--- NOTE | 2019-05-07 11:04 | P.PN ---
Subjective Date of Service: 05/07/19 Chief Complaint: LOC Patient is complaining of persistent left shoulder pain. She denies any melena or bright red blood per rectum. She was started on heparin drip yesterday she continues to ambulate with a walker. Status post 1 unit PRBC transfusion. Posttransfusion hemoglobin is up to 8.9. Physical Examination - Vital Signs Temperature: 98.1 F Blood Pressure: 153/67 Pulse: 77 Respirations: 17 Pulse Ox (%): 95 - Physical Exam General: Alert, In no apparent distress, Oriented x3 HEENT: Mucous membr. moist/pink Neck: Supple, JVD not distended Respiratory: Clear to auscultation bilaterally, Normal air movement Cardiovascular: Regular rate/rhythm, Normal S1 S2 Gastrointestinal: Normal bowel sounds, Soft and benign, No tenderness Musculoskeletal: Tenderness (Left shoulder and supraclavicular area.), Other Neurological: Normal speech, Normal strength at 5/5 x4 extr Assessment And Plan - Current Problems (Diagnosis) (1) Acute CVA (cerebrovascular accident) Current Visit: Yes Status: Acute (2) History of DVT (deep vein thrombosis) Current Visit: Yes Status: Acute (3) Acute renal failure Current Visit: Yes Status: Acute (4) Rhabdomyolysis Current Visit: Yes Status: Resolved (5) Hypertension Current Visit: No Status: Acute (6) Morbid obesity with BMI of 50.0-59.9, adult Current Visit: No Status: Acute (7) Lymphedema Onset Date: 08/06/15 Current Visit: No Status: Chronic (8) Anemia Current Visit: Yes Status: Acute (9) Lumbar spinal stenosis Current Visit: Yes Status: Acute (10) GI bleed Current Visit: Yes Status: Acute (11) Fall Current Visit: Yes Status: Acute - Plan Continue heparin drip. Monitor PTT per protocol. Watch for active bleeding. IV protonix. GI consult to evaluate GI bleed. Continue aspirin. Neurology to follow. Continue to monitor hemoglobin daily. Left AC separation noted on left shoulder x-ray. Conservative management-pain management and rest. Continue PT. Continue antihypertensives. Local wound care for Decubitus ulcer. Frequent turning, decubitus ulcer precautions. Follow up with Neurosurgery as outpatient for lumbar spinal stenosis
[2019-05-07] MEDS: HEPARIN/D5W 25,000 UNIT/500 ML BAG IV SCH (11:30)
[2019-05-07] MEDS: SOD FERRIC GLUC COMPLX/SUCROSE 250 MG in NA CHLORIDE 0.9% 250 ML IV SCH (15:04)
--- NOTE | 2019-05-07 18:46 | PN ---
Date of Progress Note: 05/07/2019 Subjective: Patient was admitted with urgent hypertension, CVA status post tPA. Physical Examination: Vital Signs: Blood pressure 153/67, pulse of 77. Patient had good urine output of 800. Chest: Devon ar to auscultation. Heart: S1, S2. Systolic murmur. Abdomen: Soft, nontender. Extremities: Plu s edema. Laboratory Data: WBC 4.8, H and H 8.9/27.5, platelets 156. Sodium 143, potassium 3.7, bicarb 29, BU N 14, creatinine 1.4, GFR of 42. TSAT of 18, ferritin 168, albumin 2.4, PC ratio 0.4. Current Medications: 1.Aspirin. 2.Heparin. 3.Spironolactone 25 daily. 4.Metoprolol. Assessment And Plan: 1.Acute kidney injury secondary to hypertension, urgency recover, plateau. 2.Hypertension, better controlled. I am going to go ahead and increase spironolactone to b.i.d. 3.Hypokalemia. Increase spironolactone. 4.Iron deficiency anemia, started on IV iron. 5.CVA. Continue PT, OT. YFN/LALA Voice ID: [id number] Report ID: [id number]
[2019-05-08] MEDS: HEPARIN/D5W 25,000 UNIT/500 ML BAG IV SCH (04:03)
[2019-05-08 06:09] LABS: Albumin 2.4 g/dL (3.4-5.0); Phosphorus 3.9 mg/dL (2.5-4.9); Potassium 3.7 mmol/L (3.5-5.1)
[2019-05-08] MEDS: METOPROLOL XL 50 MG TAB PO SCH (08:29)
[2019-05-08] MEDS: ASPIRIN EC 81 MG TAB PO SCH (08:29)
[2019-05-08] MEDS: MEDIHONEY 44 ML TOPICAL TUBE TOP SCH (08:29)
[2019-05-08] MEDS: PANTOPRAZOLE 40MG TABLET PO SCH (08:30)
[2019-05-08] MEDS: SPIRONOLACTONE 25 MG TABLET PO SCH ×2 (08:30→21:44)
[2019-05-08 09:33] LABS: Hematocrit 27.9 % (36.0-45.0)
--- NOTE | 2019-05-08 13:42 | P.PN ---
Subjective Date of Service: 05/08/19 Chief Complaint: LOC Patient denies any melena or bright red blood per rectum. She is on heparin drip . Hemoglobin has been stable since blood transfusion. She continues to ambulate with a walker. Physical Examination - Vital Signs Temperature: 98.6 F Blood Pressure: 100/58 Pulse: 78 Respirations: 20 Pulse Ox (%): 99 - Physical Exam General: Alert, In no apparent distress, Oriented x3 HEENT: Mucous membr. moist/pink, Sclerae nonicteric Neck: Supple, JVD not distended Respiratory: Clear to auscultation bilaterally, Normal air movement Cardiovascular: Regular rate/rhythm, Normal S1 S2 Gastrointestinal: Normal bowel sounds, Soft and benign, Non-distended, No tenderness Musculoskeletal: Swelling (Right upper extremity), Other (Bilateral lower extremity lymphedema) Integumentary: Other (Gluteal decubitus ulcer) Neurological: Normal speech, Normal strength at 5/5 x4 extr Assessment And Plan - Current Problems (Diagnosis) (1) Acute CVA (cerebrovascular accident) Current Visit: Yes Status: Acute (2) History of DVT (deep vein thrombosis) Current Visit: Yes Status: Acute (3) Acute renal failure Current Visit: Yes Status: Acute (4) Rhabdomyolysis Current Visit: Yes Status: Resolved (5) Hypertension Current Visit: No Status: Acute (6) Morbid obesity with BMI of 50.0-59.9, adult Current Visit: No Status: Acute (7) Lymphedema Onset Date: 08/06/15 Current Visit: No Status: Chronic (8) Anemia Current Visit: Yes Status: Acute (9) Lumbar spinal stenosis Current Visit: Yes Status: Acute (10) GI bleed Current Visit: Yes Status: Acute (11) Fall Current Visit: Yes Status: Acute - Plan No active bleeding. No melena or hematochezia. Hemoglobin has been stable on heparin drip. No GI available for the next 2 weeks. Will switch from heparin drip back to Eliquis. Continue protonix Discontinue aspirin. Iron therapy. GI evaluation as an outpatient. Neurology to follow. Left AC separation noted on left shoulder x-ray. Conservative management-pain management and rest. Continue PT. Continue antihypertensives. Local wound care for Decubitus ulcer. Frequent turning, decubitus ulcer precautions. Follow up with Neurosurgery as outpatient for lumbar spinal stenosis. Awaiting rehab placement.
--- NOTE | 2019-05-08 23:24 | PN ---
Subjective: No new complaints. Patient ambulating with physical therapy 40 feet, contact guard assi stance. Objective: Vital Signs: Blood pressure 136/60, pulse 81, respiratory rate 20 temperature 99.8, oxyg en saturation 98%. Weight 245 pounds. Height 5 feet 6 inches. Laboratory Studies: Show hemoglobin 9.1, hematocrit 27.9. The blood work for sodium, potassium, chl oride, essentially all unremarkable, except slightly elevated chloride of 110, chronic renal insuffic iency with creatinine 1.47, calcium slightly low at 8.4, albumin slightly low at 2.4. Creatine kinas e normalized, last number on the , down from 1219 on the of last month. It should be no micki brain MRI does not show stroke. Cervical and lumbar imaging studies; no significant obstructions . Assessment: Ms. 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 She does not have evidence of a central nervous system ischemic event such as stroke or spinal cord related issues such as cord compression or significant nerve root compression to explain her symptoms. Further, she is improving in terms of strength with physical therapy. She is scheduled for EGD by Dr. Matute in the short-term and may proceed with that since she has not had a stroke and is not as significantly higher risk for stroke, although given ch ronic renal insufficiency, we will make sure good hydration maintained. She is on Lovenox likely for DVT prophylaxis. There is no evidence of deep vein thrombus or any issues such as vegetation on car diac echocardiogram where she has a normal ejection fraction of 73%. She has a negative saline contr ast study with no evidence of right to left shunt. Plan: She may have EGD, may hold heparin x4 hours to 6 hours prior to procedure and may restart anti coagulation following. She may be on heparin 5000 units twice daily for DVT prophylaxis. LENO/DAVIDL Voice ID: [id number] Report ID: [id number]
[2019-05-09] MEDS: ACETAMINOPHEN 500 MG TAB PO PRN (00:57)
--- NOTE | 2019-05-09 03:25 | PN ---
Date of Progress Note: 05/08/2019 Chief Complaint: Acute kidney injury on chronic kidney disease, hypertension with urgency, history of CVA status post tPA. Today, patient denies new complaints. Physical Examination: Lungs: Clear to auscultation bilaterally. Heart: S1, S2. Abdomen: Soft, benign. Extremities: Slight edema. Laboratory Data: Bicarbonate 29, potassium 3.7, sodium 143, BUN 14, creatinine 1.4, albumin 2.4. Impression And Plan: 1. Acute kidney injury secondary to renal hypoperfusion superimposed with chronic kidney disease. Continue to monitor proteinuria, hypokalemia. Patient was treated with spironolactone. Monitor potassium. 2. Hypertension. Control suboptimal, blood pressure medication were adjusted. 3. Cerebrovascular accident. Continue physical therapy. 4. Anemia, iron deficiency. Continue IV iron. IRVIN/LALA Voice ID: [id number] Report ID: [id number] [id number]
[2019-05-09 05:33] LABS: Absolute Lymphocytes (CBC) 0.9 K/uL (0.7-4.9); Basophils % 0.9 % (0-1.3); Hematocrit 26.6 % (36.0-45.0); Lymphocytes % 20.9 % (15.3-44.8); MPV 8.7 fL (7.6-11.3); RBC Red Blood Cell Count 2.82 M/uL (3.86-4.86)
[2019-05-09 07:03] LABS: Albumin 2.3 g/dL (3.4-5.0); Phosphorus 3.9 mg/dL (2.5-4.9); Potassium 3.8 mmol/L (3.5-5.1)
[2019-05-09] MEDS: SPIRONOLACTONE 25 MG TABLET PO SCH ×2 (08:39→21:27)
[2019-05-09] MEDS: PANTOPRAZOLE 40MG TABLET PO SCH (08:40)
[2019-05-09] MEDS: METOPROLOL XL 50 MG TAB PO SCH (08:40)
[2019-05-09] MEDS ORDERED: Ringers Lactate 1,000 ML IV ONE (10:50)
[2019-05-09] MEDS ORDERED: LIDOCAINE 1% MPF 2 ML AMPULE ONE (10:58)
[2019-05-09] MEDS ORDERED: propofoL 200 MG/20 ML VIAL IV ONE ×2 (10:58→11:00)
[2019-05-09] MEDS ORDERED: LIDOCAINE 1% MPF 5 ML VIAL ONE (10:59)
[2019-05-09] MEDS ORDERED: EPINEPHRINE/PF 1 MG/ML AMP ONE (11:09)
--- NOTE | 2019-05-09 12:16 | ENDO RPT ---
[address], [address] EGD PROCEDURE REPORT EXAM DATE: 05/09/2019 PATIENT NAME: Yaa Deleon MR#: [id number] BIRTHDATE: 1950 ATTENDING: Moses Matute Dr STATUS: inpatient - 7 UNDER TRIMMER: Missy Villalpando RN, Vee Rodgers RN, Verito Guo RN, and Zina Morales RN INDICATIONS: The patient is a 69 yr old Female here for an EGD due to anemia with acute drop in hgb, history of peptic ulcer disease in 2018 PROCEDURE PERFORMED: EGD with biopsy MEDICATIONS: Per Anesthesia. TOPICAL ANESTHETIC: none CONSENT: The patient understands the risks and benefits of the procedure and understands that these risks include, but are not limited to: sedation, allergic reaction, infection, perforation and/or bleeding. Alternative means of evaluation and treatment include, among others: physical exam, x-rays, and/or surgical intervention. The patient elects to proceed with this endoscopic procedure. DESCRIPTION OF PROCEDURE: During intra-op preparation period all mechanical medical equipment was checked for proper function. Hand hygiene and appropriate measures for infection prevention was taken. Procedure, possible complications, and alternatives including but not limited to the possibility of bleeding, perforation, tear, infection, sepsis, need for surgery, need for blood transfusion, and anesthesia related complications were explained to the patient. After the risks, benefits and alternatives of the procedure were thoroughly explained, Informed consent was verified, confirmed and timeout was successfully executed by the treatment team. The patient was placed in the left lateral position. The patient was anesthetized with topical anesthesia. Through the anesthetized oropharyngeal area, the scope was passed without any difficulty. The [id number] ([id number]) endoscope was introduced through the mouth and advanced to the second portion of the duodenum. Retroflexed views revealed a small hiatal hernia. The gastroscope was then slowly withdrawn and removed. A small hiatal hernia was found Mild gastritis was found in the antrum. Multiple biopsies were obtained and sent to pathology. ADVERSE EVENTS: There were no complications. IMPRESSIONS: 1. Small hiatal hernia 2. Mild gastritis in the antrum, s/p biopsies RECOMMENDATIONS: 1. await biopsy results 2. acid suppression therapy REPEAT EXAM: Moses Matute Dr eSigned: Moses Matute Dr 05/09/2019 12:16 PM cc: CPT CODES: ICD9 CODES: PATIENT NAME: Pancho Buddyharman Flower MR#: [id number]
[2019-05-09] MEDS: MEDIHONEY 44 ML TOPICAL TUBE TOP SCH (14:08)
--- NOTE | 2019-05-09 16:19 | PN ---
Date of Progress Note: 05/09/2019 Subjective: Patient was admitted with CVA, status post tPA. Patient doing well. Patient planned fo r EGD today. Physical Examination: Vital Signs: Blood pressure 149/59, pulse of 74, afebrile. Patient had good urine output. Chest: Clear to auscultation. Heart: S1, S2. Regular. Abdomen: Soft, nontender. Extremities: Plus edema. Laboratory Data: WBC 4.1, H and H 8.7/26.6, platelets 144. Sodium of 146, potassium 3.8, bicarb 29, BUN 14, creatinine down to 1.4 plateau, GFR of 43. TSAT of 18, ferritin of 168. B12 of 525. Folat e within normal limits. PC ratio 0.4. Current Medications: The patient on include: 1.Iron IV. 2.Heparin. 3.Spironolactone 25 b.i.d. 4.Metoprolol. 5.Pantoprazole. Assessment And Plan: 1.Hypertension with urgent hypertension with cerebrovascular accident. Blood pressure currently wel l controlled. Patient was placed on spironolactone and metoprolol, being controlled. 2.Hypokalemia, resolved. Continue spironolactone. 3.Cerebrovascular accident. Continue current treatment. Follow up with Neurology. 4.Iron-deficiency anemia. Continue intravenous iron. Follow up GI for EGD today. SHORTY Voice ID: [id number] Report ID: [id number]
--- NOTE | 2019-05-09 17:07 | CON ---
Date of Consultation: 05/09/2019 Reason For Consultation: Anemia with acute drop in hemoglobin. History Of Present Illness: The patient is a 69-year-old female with history of hypertension, coronary artery disease, lymphedema, hysterectomy, tonsillectomy. The patient presented to the hospital with altered mental status. Found down nonresponsive by family. Police and EMS were called. Patient was transported to hospital. The patient was found in urine and feces on the ground. Workup revealed a CK of approximately 3000 with a creatinine of 2.3. CT of head revealed a subacute stroke, right frontal occipital lobe. Troponin was mildly elevated at 0.06. The patient was tachycardic and confused, probably dehydrated. Since in hospital, subsequent MRI imaging of the brain and other imaging did not reveal a stroke. The patient does indeed have rhabdomyolysis, which is continuing despite IV fluid treatment. Her renal function has improved somewhat from 2.7 down to 1.46. The patient's mental status has recovered. She is able to respond to questions now. States that she has not seen any blood to her knowledge recently, but she did have a sepsis on admission with a white count of 13.1, polys of approximately 87%, and 2+ blood noted in the urine without any rbc's indicative of rhabdomyolysis, which continues as of April 28 on last check of the urine. Past Medical History: Significant for hypertension, coronary artery disease, lymphedema, peptic ulcer disease in 2017 EGD, colon cancer in 2017 with colostomy - takedown 02/21 after colonoscopy in 01/21 in [place], [place]. Past Surgical History: Hysterectomy, tonsillectomy. Allergies: NKDA. Social History: She is . Daughter is alive and well. Son in 1998 of AIDS and complications of HIV. No tobacco. No alcohol. No illicit drugs. Family History: Son of HIV as stated above. Medications: In hospital, Tylenol, emollient gel for wound care, iron supplements, metoprolol, Zofran, Protonix, Aldactone, aspirin, heparin. Aspirin has been discontinued on May 08. Review of Systems: The patient has altered mental status which has improved. Dehydration, sepsis, inability to move well with chronic back pain. No depression, anxiety, chest pain, shortness of breath, seizure, syncope, lower extremity edema that is mild. No muscle aches, joint aches. Backache is positive. No hematemesis, coffee-ground emesis, hematuria, dysuria, polydipsia, melena, hematochezia. No seizure or syncope. Physical Examination: Vital Signs: She is 5 feet 6 inches, 245 pounds, BMI of 40 kg/m2. She has temperature of 97.7 degrees Fahrenheit, pulse 81, respirations 18, blood pressure 147/63, O2 saturation 100%. General: She is an obese female, lying in bed, in no acute distress. HEENT: Normocephalic, atraumatic. Anicteric. Pupils equal, round, and reactive to light. Extraocular movements are intact. Oropharynx is clear. Neck: Supple. No masses. Respirations: Clear to auscultation bilaterally. Cardiac: Regular rate and rhythm. No gallops. Abdomen: Positive bowel sounds. Soft, nontender, nondistended. No splenomegaly, obesity with no peritoneal or Avina sign. No rebound. Extremities: No clubbing, cyanosis. Mild lower extremity edema. Neurologic: Alert and oriented x3. Able to move all extremities. Though is bed bound, she is currently on a stretcher. Laboratory Data: The patient has a white count of 4.1, hemoglobin of 8.7, hematocrit 27.7, MCV of 94, platelet count 144, polys of 61%, lymphocytes 21%, monocytes 14%, eosinophils 3%. Of note, on admission, patient had a white count of 13.1, polys of 87%, lymphocytes 3%, platelets 188, hemoglobin of 11.2. Since that time, the white count has gone from 13.1 down to 4.1. Hemoglobin has dropped from 11.2 down to the lowest of 7.9 on May 06, now back up to 8.7. Polys at 87% have decreased down to 61% with antibiotic therapy. On admission, patient had PT of 15.9, INR of 1.4, PTT of 29, it has gone up to as high as 176 on IV heparin and is now down to 43 of PTT. The patient's sodium is 146, potassium 3.8, chloride 112, bicarb 29, BUN 14, creatinine of 1.45, calcium of 8.2, phosphorus 3.9, iron saturation of 18.3% which is slightly low. Ferritin normal at 168.9, albumin of 2.4, B12 of 525 was normal, folate of 11. Has a cholesterol of 237, LDL of 144, HDL of 65, triglycerides 139. Check a creatine kinase on admission 2531, which was down to 169 on May 02, 2019. UA on April 28 revealed 2+ blood and less than 5 rbc's, 1+ sediment, 1+ protein, otherwise negative. Imaging: Revealed MRI brain on April 27, which revealed no acute stroke. MRI with MRA of brain, [place] revealed no obstruction of the blood vessels of the brain. Impression: 1. Anemia with acute drop in hemoglobin from 11.2 on admission down to 7.9 at the lowest, now back up to 8.7, it is probably related to rhabdomyolysis with sepsis. White count 13.1 with polys of 87%. CK of 2532 on admission. UA revealed 2+ blood, less than 5 rbc's consistent with rhabdomyolysis and sepsis. The patient has recovered from that. White count is down from 13 down to 4, and it appears that the CK is normal now as well as the patient has improved. Hemoglobin is now stabilized, which is to be expected. The patient denies any melena, hematochezia, coffee-ground emesis, hematuria, dysuria, polydipsia. No blood seen by the patient or other family members. Staff has not been noted. The patient notes that she did have colon cancer in 2018, [facility] by Dr. Russell and had resection with chemotherapy with oncologist. She had a colostomy bag as well with a colonoscopy repeated in January 2019 prior to the reversal of the colostomy/takedown colostomy in February 2019, so she has had a colonoscopy within the past few months. Of note, back in 2018 she had a diagnosis of colon cancer. She had EGD at that time, which revealed peptic ulcer disease, for which she was treated with PPI therapy. 2. Rhabdomyolysis and sepsis. White count of 13.1, polys of 87%. CK of 2532. UA: 2+ blood, less than 5 rbc's, is improved with therapy. Her CK is now normal at approximately 168. 3. History of peptic ulcer disease in 2018. History of colon cancer in 2018, status post resection in 2017 with reversal takedown of the colostomy in February 2019 with colonoscopy prior to takedown in January [address] Juan Sarmiento. 4. History of obesity, hypertension, coronary disease, and other as per above. Recommendations: 1. PPI therapy. 2. Serial H and H's and transfuse p.r.n. 3. Evaluate with EGD. 4. Continue IV fluids WS/MODL Voice ID: [id number] Report ID: [id number] MTDD
--- NOTE | 2019-05-09 17:22 | PN ---
Date of Progress Note: 05/09/2019 Subjective: Patient was seen and examined. Chart reviewed and case discussed with RN. Patient went for endoscopy today by Dr. Matute. Otherwise, no acute events overnight. Medications: List reviewed. Code Status: Full. Advanced Care Planning: Discussed with the patient. Physical Examination: Vital Signs: Temperature 98.4, heart rate 81, blood pressure 141/69, respirations 16, O2 saturations 98% on room air. General: Awake, alert, oriented x3. Morbidly obese female, not in any acute distress. CV: S1, S2. Regular rate and rhythm. Peripheral pulses present. Respiratory: Moving air well bilaterally. No wheezing or stridor. Gastrointestinal: Abdomen is soft, nontender, nondistended. Positive bowel sounds. No guarding or rigidity. Extremities: No clubbing or cyanosis. Patient has bilateral lower extremity edema. Neurologic: Nonfocal. Laboratory Data: Sodium 146, potassium 3.8, chloride 112, CO2 of 29, BUN 14, creatinine 1.45, glucos e 98. Calcium 8.2. Albumin 2.3. WBC 4.1, hemoglobin and hematocrit 8.7 and 26.6, platelets 144, ne utrophils 61.4%. Blood cultures, no growth to date. Final urine culture, no growth. Stool occult b lood was positive. Assessment: A 69-year-old female with 1.Acute cerebrovascular accident, improved. 2.History of deep venous thrombosis, was on heparin due to gastrointestinal bleed and planned endosc opy. Esophagogastroduodenoscopy shows gastritis and hiatal hernia. We will continue with PPI. We w ill resume anticoagulation in a.m. 3.Acute kidney injury on chronic kidney injury, improved. Creatinine seems to come to the baseline and plateaued around 1.45. 4.Acute rhabdomyolysis, resolved. 5.Essential hypertension, stable. 6.Morbid obesity, BMI 40. 7.Lymphedema, chronic. 8.Acute anemia secondary to blood loss. Patient has gastritis, otherwise we will continue to monito r H and H. 9.Hypernatremia. We will continue to monitor. 10.Lumbar spinal stenosis. No cauda equina type symptoms. Patient to follow up with neurosurgery a [facility] as an outpatient. Dr. Nevarez has spoken with the neurosurgeon there. 11.Gastrointestinal bleed, status post esophagogastroduodenoscopy by GI, Dr. Matute. Gastritis foun d along with hiatal hernia. Continue with PPI. 12.Status post fall. Continue with physical therapy. Plan: Discharge to rehab once accepted. /LALA Voice ID: [id number] Report ID: [id number]
[2019-05-09] MEDS: APIXABAN 5 MG TABLET PO SCH (21:27)
[2019-05-10 05:51] LABS: Albumin 2.6 g/dL (3.4-5.0); Phosphorus 3.4 mg/dL (2.5-4.9); Potassium 3.6 mmol/L (3.5-5.1)
--- NOTE | 2019-05-10 08:50 | P.PN ---
Subjective Date of Service: 05/10/19 Chief Complaint: LOC, AMS, dehydration, rhabdo, sepsis Subjective: Improving (She feels better and is A&OX3. EGD revealed a small hiatal hernia and mild gastritis only. She had colonoscopy in 01/21 before colostomy takedown in 02/21 for colon cancer surgery in 2018 in [place], [place].) Review of Systems 10-point ROS is otherwise unremarkable General: Weakness (Improved.), Malaise (Improved.) Physical Examination - Vital Signs Temperature: 97.6 F Blood Pressure: 142/68 Pulse: 72 Respirations: 17 Pulse Ox (%): 100 - Physical Exam General: Alert, In no apparent distress, Oriented x3 HEENT: Atraumatic, Normocephalic, PERRLA, EOMI Neck: Supple Respiratory: Normal air movement Cardiovascular: Normal pulses Gastrointestinal: Soft and benign, No tenderness, No rebound, No guarding, Other (obese) Neurological: Normal speech Assessment And Plan - Current Problems (Diagnosis) (1) Sepsis Current Visit: Yes Status: Acute Comment: WBC normal. Anemia probably due to sepsis with rhabdo. (2) Acute renal failure Current Visit: Yes Status: Acute (3) Anemia Current Visit: Yes Status: Acute (4) Rhabdomyolysis Current Visit: Yes Status: Resolved (5) Morbid obesity with BMI of 50.0-59.9, adult Current Visit: No Status: Acute - Plan REC: 1) continue PPI therapy 2) renal diet 3) monitor H&Hs and transfuse prn
[2019-05-10] MEDS: MEDIHONEY 44 ML TOPICAL TUBE TOP SCH (09:00)
[2019-05-10] MEDS: SPIRONOLACTONE 25 MG TABLET PO SCH ×2 (09:00→20:28)
[2019-05-10] MEDS: PANTOPRAZOLE 40MG TABLET PO SCH (09:04)
[2019-05-10] MEDS: APIXABAN 5 MG TABLET PO SCH ×2 (09:04→20:31)
[2019-05-10] MEDS: METOPROLOL XL 50 MG TAB PO SCH (09:04)
[2019-05-10] MEDS: SOD FERRIC GLUC COMPLX/SUCROSE 250 MG in NA CHLORIDE 0.9% 250 ML IV SCH (14:50)
[2019-05-10] MEDS ORDERED: POTASSIUM CL SA 10 MEQ TAB PO ONE (16:00)
--- NOTE | 2019-05-10 16:29 | PN ---
Date of Progress Note: 05/10/2019 Subjective: Patient seen and examined. Chart reviewed and case discussed with RN. Patient complain ing that she had to get up multiple times at night to urinate and was unable to get much sleep. Oumou ent currently on Aldactone. Otherwise, no other complaints. Medications: List reviewed. Physical Examination: Vital Signs: Temperature 97.6, heart rate 72, blood pressure 142/68, respirations 17, O2 100% on galina m air. General: Awake, alert, oriented x3. Elderly female, some mild distress, morbidly obese. BMI 41. CV: S1, S2. Regular rate and rhythm. Peripheral pulses present. Respiratory: Diminished breath sounds at the bases. Otherwise, moving air well bilaterally. No whe ezing or stridor. Gastrointestinal: Abdomen is soft, nontender, nondistended. Positive bowel sounds. No guarding or rigidity. Extremities: No clubbing, cyanosis, or edema. The patient has lower extremity edema and chronic cat ous stasis changes. Neurologic: Nonfocal. Laboratory Data: Sodium 144, potassium 3.6, chloride 110, CO2 of 29, BUN 15, creatinine 1.51, glucos e 87, calcium 8, phosphorus 3.4, albumin 2.6. WBC pending. Cultures negative to date. Assessment: A 69-year-old female with: 1.Acute cerebrovascular accident, improving. 2.We will continue with statin. Patient is on antithrombin. 3.History of deep venous thrombosis, now back on Eliquis. Patient has had EGD only as shows gastrit is and hiatal hernia. Case discussed with Dr. Matute. Okay to resume anticoagulation. 4.Acute kidney injury, superimposed on chronic kidney disease stage 3. Now back to baseline. Jeannette neal Nephrology input. 5.Acute rhabdomyolysis, resolved. 6.Essential hypertension, stable. 7.Chronic lymphedema of the lower extremities, stable. 8.Morbid obesity. BMI greater than 40. 9.Acute blood loss anemia. No need for transfusion at this time, status post EGD showing gastritis and hiatal hernia. Continue with PPI. 10.Hypernatremia, improved. 11.Lumbar spinal stenosis without cauda equina symptoms. Patient to follow up with Neurosurgery at [facility]. 12.Acute gastrointestinal bleed, status post EGD, found to have gastritis. Continue PPI. 13.Status post fall. Continue PT. Plan: Disposition rather discharge to rehab once accepted. /LALA Voice ID: [id number] Report ID: [id number]
[2019-05-10] MEDS: JUVEN PACKET PO SCH (20:31)
[2019-05-10] MEDS ORDERED: ATORVASTATIN 40 MG TAB PO SCH (21:00)
--- NOTE | 2019-05-10 21:02 | PN ---
Date of Progress Note: 05/10/2019 History: The patient was admitted with CVA status post tPA, tolerated the tPA. Patient came, found to have urgent hypertension, acute kidney injury secondary to urgent hypertension. Patient was place d on spironolactone, her blood pressure better controlled. Physical Examination: Vital Signs: When I saw the patient, blood pressure of 128/65, pulse of 80 afebrile. Chest: Clear to auscultation. Heart S1, S2. Regular. Abdomen: Soft, nontender. Extremities: Trace edema. Neurologic: Alert. Laboratory Data: WBC 4.1, H and H 8.7 and 26.6, platelets 144. Sodium 144, potassium 3.6, bicarb 28 , BUN 15, creatinine 1.5, calcium 8, phosphorus 3.8. Current Medications: The patient is on include, IV iron, atorvastatin, metoprolol 50, spironolactone 25 b.i.d., Zofran. Assessment And Plan: 1.Acute kidney injury secondary to hypertension urgency recover, plateau currently. We will continu e current treatment. 2.Hypertension, controlled, optimal. Continue current treatment. 3.Hypokalemia, continue spirolactone. We will supplement. 4.Cerebrovascular accident. Continue PT, OT. 5.Iron-deficiency anemia status post esophagogastroduodenoscopy only gastritis. Continue PPI. Cont inue IV iron. YFN/LALA Voice ID: [id number] Report ID: [id number]
[2019-05-11 05:37] LABS: Absolute Lymphocytes (CBC) 0.8 K/uL (0.7-4.9); Basophils % 0.6 % (0-1.3); Hematocrit 26.8 % (36.0-45.0); Lymphocytes % 20.1 % (15.3-44.8); MPV 8.7 fL (7.6-11.3); RBC Red Blood Cell Count 2.83 M/uL (3.86-4.86)
[2019-05-11 06:00] LABS: Albumin 2.5 g/dL (3.4-5.0); Bilirubin Total 0.3 mg/dL (0.2-1.0); Phosphorus 3.3 mg/dL (2.5-4.9); Potassium 3.7 mmol/L (3.5-5.1); Protein, Total 5.9 g/dL (6.4-8.2)
[2019-05-11 06:30] VITALS: BMI 40.2
[2019-05-11] MEDS: SPIRONOLACTONE 25 MG TABLET PO SCH (08:59)
[2019-05-11] MEDS: METOPROLOL XL 50 MG TAB PO SCH (09:00)
[2019-05-11] MEDS: JUVEN PACKET PO SCH (09:00)
[2019-05-11] MEDS: PANTOPRAZOLE 40MG TABLET PO SCH (09:00)
[2019-05-11] MEDS: MEDIHONEY 44 ML TOPICAL TUBE TOP SCH (09:00)
[2019-05-11] MEDS: APIXABAN 5 MG TABLET PO SCH (09:00)
[2019-05-11] MEDS: ACETAMINOPHEN 500 MG TAB PO PRN ×2 (09:07→14:13)
[2019-05-11] MEDS ORDERED: POTASSIUM CL SA 10 MEQ TAB PO ONE (11:29)
--- NOTE | 2019-05-11 16:18 | PN ---
Date of Progress Note: 05/11/2019 Subjective: Patient seen and examined. Chart reviewed and case discussed with RN. No acute events overnight. Patient complaining about having to get up multiple times during the night to urinate due to diuretics. Medication List: Reviewed. Physical Examination: Vital Signs: Temperature 98.9, heart rate 68, blood pressure 150/59, respirations 18, O2 98% on room air. General: Awake, alert, oriented x3, not in any acute distress. Elderly female, obese. BMI 40. CV: S1, S2. Regular rate and rhythm. Peripheral pulses present. Respiratory: Moving air well bilaterally. No wheezing or stridor. Gastrointestinal: Abdomen is soft, nontender, nondistended. Positive bowel sounds. Extremities: No clubbing or cyanosis. Patient has bilateral lower extremity edema. Neurologic: Nonfocal. Laboratory Data: Sodium 145, potassium 3.7, chloride 112, CO2 of 27, BUN 16, creatinine 1.42, glucos e 92, calcium 8.3, phosphorus 3.3, albumin 2.5. WBC 3.9, H and H 8.6 and 26.8, platelets 142, neutro phils 67%. Cultures are negative. Assessment: A 69-year-old female with: 1.Acute cerebrovascular accident, improving. We will continue with statin and aspirin. Patient is on Eliquis. 2.History of deep venous thrombosis. Eliquis has been resumed. 3.Acute kidney injury, superimposed on chronic kidney disease stage 3. Creatinine back to baseline. Continue to monitor creatinine level and avoid NSAIDs. Appreciate Nephrology input. 4.Acute rhabdomyolysis, resolved. 5.Essential hypertension, stable. 6.Chronic lymphedema of lower extremities. 7.Acute blood loss anemia. We will continue to monitor, transfuse for hemoglobin less than 7. Oumou ent has had EGD. Continue with PPI. 8.Hypernatremia, improved. 9.Lumbar stenosis without cauda equina syndrome symptoms. Follow up with Neurosurgery at [facility] . 10.Acute gastrointestinal bleed, status post EGD with gastritis. Continue PPI. No further bleeding . 11.Status post fall. We will continue physical therapy. 12.Morbid obesity, BMI 40. Plan: Patient is medically stable for discharge. Awaiting insurance approval for rehab. May need t o consider alternatives. Patient is improved while being in the hospital with physical therapy. Con director of land [facility] SN[facility] versus home with PT. We will touch base with daughter. ZAHIRA Voice ID: [id number] Report ID: [id number]
--- NOTE | 2019-05-11 16:33 | PN ---
Date of Progress Note: 05/11/2019 History Of Present Illness: Patient was admitted with CVA status post tPA, urgent hypertension. Pat ient had acute kidney injury secondary to urgent hypertension. Blood pressure has been controlled. Kidney function has been stabilized. Physical Examination: Vital Signs: Blood pressure 150/59, pulse of 68, afebrile. Patient had good urine output. Chest: Clear to auscultation. Heart: S1, S2 regular. Abdomen: Soft, nontender. Extremities: Plus edema. Laboratory Data: H and H of 8.6/26.8. Sodium 145, potassium 3.6, bicarb 27, BUN 16, creatinine 1.4, calcium 8.3, phosphorus 3.3, albumin 2.5, corrected calcium 9.5. Current Medications: The patient on include: 1.IV iron. 2.Eliquis. 3.Atorvastatin. 4.Metoprolol 50 daily. 5.Spironolactone 25 b.i.d. 6.Pantoprazole. 7.Zofran. Assessment And Plan: 1.Acute kidney injury secondary to hypertension, nephrosclerosis with urgent hypertension plateau. We will continue to monitor. 2.Iron-deficiency anemia. Continue IV iron. 3.Hypertension, controlled, optimal. I am going to change the spironolactone to daily to avoid noct uria. 4.Hypokalemia. We will supplement. Continue spironolactone. 5.Cerebrovascular accident. Continue supportive treatment. SHORTY Voice ID: [id number] Report ID: [id number]
[2019-05-11 19:19] VITALS: BP 115/60; TEMP 98.6; O2SAT 100
--- NOTE | 2019-05-12 02:25 | DS ---
Date of Discharge: 05/11/2019 Consultants: 1. Dr. Deluna. 2. Dr. Arroyo. 3. Dr. Gipson with Nephrology. 4. Dr. Natarajan with Neurology. 5. Dr. Matute with GI. 6. Dr. Boss with Cardiology. Procedures: On 05/09/2019, EGD showing gastritis and hiatal hernia. Admitting Diagnoses: 1. Acute to subacute cerebrovascular accident in the right frontal occipital lobes. 2. Acute metabolic encephalopathy. 3. Acute rhabdomyolysis. 4. Acute kidney injury. 5. Elevated troponin level. 6. Essential hypertension. 7. Coronary artery disease pauma artery and pauma heart without angina. 8. Chronic lymphedema. 9. Morbid obesity. Discharge Diagnoses: 1. 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 2. History of deep venous thrombosis on Eliquis. 3. Acute kidney injury, superimposed on chronic kidney disease stage 3, creatinine back to baseline. 4. Acute rhabdomyolysis, resolved. 5. Essential hypertension, stable. 6. Chronic lymphedema of the lower extremities. 7. Acute blood loss anemia. 8. Acute gastritis. 9. Hypernatremia, improved. 10. Lumbar stenosis without cauda equina syndrome. She is to follow up with Neurosurgery at [facility]. 11. Acute gastrointestinal bleed, status post esophagogastroduodenoscopy. 12. Status post fall. 13. Morbid obesity. Hospital Course: Patient is a 69-year-old female with past medical history of chronic lymphedema, coronary artery disease, hypertension, comes in after being found down for several days covered in feces and urine. Patient was found to have elevated creatinine level of 2.73. She was dehydrated, had rhabdomyolysis with a CK level of 3000. Troponin was also mildly elevated at 0.06. Her CAT scan of the head showed subacute CVA, right frontal and occipital lobe. Patient was admitted to the hospital. She was not a candidate for tPA due to the duration of symptoms, which were unknown. She was seen by neurologist, Dr. Natarajan. MRI was done, which was apparently negative for acute cerebrovascular accident. Her weakness, which improved slowly on the left side was thought to be due to compressive neuropathy. She had other imaging studies done including CT lumbar spine and cervical spine and thoracic spine, although she has spinal stenosis. No cauda equina type symptoms were reported. Patient' s attending, Dr. Martinez, did speak with Neurosurgery at [facility]. Please see his progress note for details. He did not recommend any emergent transfer or need for acute intervention. Patient worked with physical therapy and occupational therapy, and speech therapy had improvement in her symptoms. She was seen by Nephrology for her acute kidney injury and rhabdomyolysis, this improved significantly. Her statin was initially held due to the rhabdomyolysis and was later resumed for her possible CVA. Patient also had some acute blood loss anemia and GI bleed. Her Hemoccult testing was positive. Dr. Matute was consulted and did an EGD. She was found to have gastritis and hiatal hernia. She was continued on PPI. She did have some electrolyte abnormalities, which were corrected. Overall, patient did well over the course of the hospital stay and was working well with physical therapy. She was referred to inpatient rehab and was approved. Patient did have a protracted stay in the hospital due to delays from rehab acceptance. Patient was at high risk to go home due to the fact that she was found down and has a risk for further adverse events and was requiring physical therapy due to her significant weakness, which gradually is improving. Her blood cultures and urine cultures were negative. Patient was then cleared for discharge and was sent home. She was sent to the inpatient rehab in a stable condition. Activity: As per rehab. Diet: Renal. Followup: Follow up with primary care physician in 2-3 days. Follow up with neurologist, Dr. Natarajan in 2 weeks. Follow up with servomechanism assembler, Dr. Arroyo , in 2 weeks. Follow up with technology applications teacher, Dr. Boss in 2 weeks. Follow up with GI, Dr. Matute in 2 weeks. Return to ER for worsening condition. Medications: As per medication reconciliation list. For physical exam findings, please see progress note dictated on day of discharge. Total time spent discharging patient was 39 minutes. /LALA Voice ID: [id number] Report ID: [id number]
[2019-05-12] MEDS ORDERED: SPIRONOLACTONE 25 MG TABLET PO SCH (09:00)
== END 2019-05-11 18:08 | DRG 73 ==
LOC: ER 13:14 → ERHOLD 16:45 → 2ND 04-28 09:22
PROVIDERS: ADMIT Family Medicine; ATTEND Family Medicine
PROC: 0DB68ZX Excision of Stomach, Via Natural or Artificial Opening Endoscopic, Diagnostic (ICD-10-PCS; principal; 2019-05-09 09:30)
DX: G56.92 Unspecified mononeuropathy of left upper limb (principal); G93.41 Metabolic encephalopathy; K29.01 Acute gastritis with bleeding; G81.94 Hemiplegia, unspecified affecting left nondominant side; M62.82 Rhabdomyolysis; N17.9 Acute kidney failure, unspecified; Z68.41 Body mass index [BMI] 40.0-44.9, adult; N30.00 Acute cystitis without hematuria; E87.0 Hyperosmolality and hypernatremia; D62 Acute posthemorrhagic anemia; I25.10 Atherosclerotic heart disease of native coronary artery without angina pectoris; E86.0 Dehydration; I89.0 Lymphedema, not elsewhere classified; E66.01 Morbid (severe) obesity due to excess calories; K44.9 Diaphragmatic hernia without obstruction or gangrene; I27.20 Pulmonary hypertension, unspecified; E87.6 Hypokalemia; R41.0 Disorientation, unspecified; M48.061 Spinal stenosis, lumbar region without neurogenic claudication; D50.9 Iron deficiency anemia, unspecified; I12.9 Hypertensive chronic kidney disease with stage 1 through stage 4 chronic kidney disease, or unspecified chronic kidney disease; N18.3 Chronic kidney disease, stage 3 (moderate); Z86.718 Personal history of other venous thrombosis and embolism
CPT/HCPCS: 36415; 36430; 51702; 70450; 70544; 70551; 71045; 72125; 72128; 72131; 72148; 76770; 80048; 80053; 80061; 80069; 80076; 81003; 81015; 82274; 82550; 82570; 82607; 82728; 82746; 83540; 83605; 83690; 83735; 84100; 84145; 84156; 84466; 84484; 85014; 85018; 85025; 85044; 85610; 85730; 86850; 86900; 86901; 87040; 87086; 87088; 88305; 88312; 92526; 92610; 93306; 93880; 94760; 96360; 96361; 97110; 97112; 97116; 97161; 97530; 99251; 99285; J0171; J0696; J1644; J1650; J2001; J2704; J2916; J7030; J7040; J7120; J7799; P9016